=== PATIENT | female | born 1975 | race Caucasian/White ===

== ENCOUNTER 2023-11-21 08:21 | Emergency (ER) | payer BC, SELFPAY ==
[2023-11-21 08:23] VITALS: BP 177/96
[2023-11-21 08:40] VITALS: BP 121/63
[2023-11-21 08:41] VITALS: BMI 48.1
--- NOTE | 2023-11-21 08:49 | ED.GENMED ---
History of Present Illness
General
Chief Complaint: Heart Rate Problem
Time Seen by Provider: 11/21/23 08:30
Travel History
Have you had any contact with someone who has COVID-19?: No
Do you have any symptoms of coronavirus? Fever > 100 degrees, chills, cough, shortness of breath, sore throat, loss of taste or smell, muscle aches, or headache?: No
History of Present Illness
History of Present Illness:
48-year-old female with a history of A-fib presents to the emergency department for evaluation of heart palpitations beginning this morning lasting approximately 1 hour. She notes associated chest tightness and dizziness during the episode. Upon
arrival to the emergency department the symptoms resolved. He does have a long history of heart palpitations that have gone undiagnosed however 1 bout of A-fib that required electrical cardioversion at outside hospital. She has previously seen a
senior svp and wore a Holter monitor that did not show any evidence for cardiac arrhythmia
Past History
Past History
ED Past Medical History: GERD, Psychiatric (Bipolar disorder, anxiety) and Other (Migraine headaches, history of pancreatitis)
ED Past Surgical History: None
Social History
Tobacco: Non-smoker
Alcohol: Occasional
Drug: None
Personal:
Living: with family
Employment: Employed ([employer])
Review of Systems
Review of Systems
Allergies reviewed?: Yes
All Other Systems: ROS reviewed and negative except as documented in HPI and ROS
Phy Exam
Physical Exam
Physical Exam:
GEN: Well appearing, NAD, WDWN
Eyes: PERRLA, EOMs intact, no scleral icterus
HENT: NCAT, oral mucosa moist
Lungs: CTAB, no wheezes, rales, rhonchi, normal chest wall excursion
Cardiac: RRR, no M/R/G, no peripheral edema. Radial pulses 2+ bilat
Neuro: AO x 3
MSK: No gross deformity or ecchymosis. No edema. No digital clubbing
Skin: No rashes, petechiae. Normal color, no pallor or jaundice.
Psych: Calm, cooperative, proper hygiene
Course
Orders/Labs/Results
Orders:
Orders
11/21/23 08:28
Electrocardiogram (*1) Urgent
Reason for Study: Tachycardia
11/21/23 08:29
EKG- Treatment ONCE
11/21/23 08:54
Complete Blood Count/With Diff Urgent
Comprehensive Metabolic Panel Urgent
TSH Urgent
Abnormal Lab Results
11/21/23
08:54
Hgb 10.2 L g/dL
(12.0-16.0)
Hct 32.9 L %
(37.0-47.0)
MCV 73.9 L fL
(81.0-99.0)
MCH 22.9 L pg
(27.0-31.0)
MCHC 31.0 L g/dL
(33.0-37.0)
RDW 16.6 H %
(11.5-14.5)
Plt Count 407 H 10^3/uL
(130-400)
MPV 10.8 H fL
(7.4-10.4)
Abs Immat Gran (auto) 0.1 H 10^3/uL
(0-0.05)
Immature Gran % 1.1 H %
(0-0.5)
Lymphocytes % 17.3 L %
(20.5-51.1)
Glucose 183 H mg/dl
(70-99)
Total Bilirubin 1.4 H mg/dl
(0.2-1.3)
11/21/23 08:54
11/21/23 08:54
Vital Signs
Initial and Last Documented VS:
Initial Vital Signs
Temp Pulse Resp BP Pulse Ox
97.8 F 100 18 177/96 100
11/21/23 08:23 11/21/23 08:23 11/21/23 08:23 11/21/23 08:23 11/21/23 08:23
Last Documented Vital Signs
Temp Pulse Resp BP Pulse Ox
97.8 F 88 24 132/69 95
11/21/23 08:23 11/21/23 09:30 11/21/23 09:30 11/21/23 09:00 11/21/23 09:30
MDM/Problems Addressed
MDM/Problems Addressed:
Patient remained in normal sinus rhythm in the emergency department with normal labs. Given her prior history of A-fib and her frequent near monthly episodes of palpitations I discussed starting her on low-dose beta-roman preventatively, she is
amenable to this. Will follow-up with her primary care doctor and primary senior svp
Comment
Comment:
EKG independently interpreted by me shows normal sinus rhythm at a rate of [address], QTc of 457
*Critical Care Note
Total Time (30-74mins, 75-104mins- exclusive of procedures): Not Applicable
ED Attending Note
-
Portions of this chart may have been created with voice recognition software.� Occasional wrong word or��sound alike� substitutions may have occurred due to the inherent limitations of voice recognition software.
Discharge Plan
Departure
Patient Disposition: Home (Routine Discharge)
Date of Disposition: 11/21/23
Time of Disposition: 09:25
Patient with high blood pressure during this ER visit?: No
Discharge Problem:
Heart palpitations
Instructions: Palpitations (DC)
Prescriptions:
New
metoprolol succinate 25 mg tablet extended release 24 hr
12.5 mg PO DAILY Qty: 30 0RF
No Action
ferrous sulfate 325 mg (65 mg iron) tablet
325 mg PO DAILY Qty: 30 0RF
Referrals:
UNKNOWN - PT DOES,NOT KNOW [Family Provider] -
Activity Restrictions/Additional Instructions:
Follow up with your primary doctor and senior svp for further symptoms
Interventions
Interventions:
*Risk Screen - Suicide Last Done: 11/21/23 08:41
*General Assessment Last Done: 11/21/23 08:41
*Neglect/Abuse Screening Last Done: 11/21/23 08:41
ED- Fall Risk Assessment Last Done: 11/21/23 08:41
*ED COVID-19 Vaccine History Last Done: 11/21/23 08:23
*Nursing Disposition Last Done: 11/21/23 09:36
ED- Cardiac Assessment Last Done: 11/21/23 08:41
ED- Pulmonary Assessment Last Done: 11/21/23 08:41
Discharge Date and Time
Discharge Date/Time: 11/21/23 09:37
Print Language: KYRGYZ
[2023-11-21 09:00] VITALS: BP 132/69
[2023-11-21 09:03] LABS: % Basophils 0.8 % (0-2); % Eosinophils 1.7 % (0-6); % Immature Granulocytes 1.1 % (0-0.5); % Lymphocytes 17.3 % (20.5-51.1); % Monocytes 5.4 % (1.7-9.3); % Neutrophils 73.7 % (42.2-75.2); Absolute Basophils 0.1 10^3/uL (0-0.2); Absolute Eosinophils 0.1 10^3/uL (0-0.7); Absolute Immature Granulocytes 0.1 10^3/uL (0-0.05); Absolute Lymphocytes 1.4 10^3/uL (1.2-3.4); Absolute Monocytes 0.5 10^3/uL (0.1-0.6); Absolute Neutrophils 6.1 10^3/uL (1.4-6.5); Hematocrit 32.9 % (37.0-47.0); Hemoglobin 10.2 g/dL (12.0-16.0); Mean Corpuscular Hgb 22.9 pg (27.0-31.0); Mean Corpuscular Volume 73.9 fL (81.0-99.0); Mean Platelet Volume 10.8 fL (7.4-10.4); Nucleated Red Blood Cells % 0 %; Platelet Count 407 10^3/uL (130-400); Red Blood Cell Count 4.45 10^6/uL (4.20-5.40); Red Cell Dist. Width 16.6 % (11.5-14.5); White Blood Cell Count 8.3 10^3/uL (4.8-10.8)
[2023-11-21 09:11] LABS: ALT (SGPT) 18 U/L (0-35); AST (SGOT) 24 U/L (14-36); Albumin 4.3 g/dl (3.5-5.0); Alkaline Phosphatase 100 U/L (38-126); Blood Urea Nitrogen 10 mg/dl (7-17); Carbon Dioxide 24 mmol/L (22-30); Chloride 105 mmol/L (98-107); Estimated Creatinine Clearance > 125 ml/min; Glucose 183 mg/dl (70-99); Potassium 4.1 mmol/L (3.5-5.1); Sodium 138 mmol/L (135-145); Total Bilirubin 1.4 mg/dl (0.2-1.3); Total Protein 7.9 g/dl (6.3-8.2); eGFR > 60.00
[2023-11-21 10:15] LABS: TSH 1.35 uIU/ml (0.47-4.68)
== END 2023-11-21 09:37 | disposition home or self-care (01) ==
LOC: EMR 08:21
PROVIDERS: Physician Assistant; EMERGENCY PHYSICIAN Emergency Medicine
DX: R00.2 Palpitations (principal); I48.91 Unspecified atrial fibrillation
CPT/HCPCS: 99284; 80053; 84443; 85025; 93005

== ENCOUNTER 2024-09-02 07:47 | Inpatient (IN) | payer BC, SELFPAY ==
[2024-08-31 15:52] VITALS: BP 161/80
--- NOTE | 2024-08-31 15:55 | ED.GENMED ---
ED Provider Triage
<Ollie Maxwell PA-C - Last Filed: 08/31/24 15:58>
-
Patient seen by provider in Triage?: Seen in Triage
Attestation: A medical screening examination has been initiated by a qualified medical provider. Based on the assessment performed at this time, it has been determined that an emergent medical condition may exist and the patient has been informed
that further medical evaluation and possible additional diagnostic testing may be needed.
HPI: 49-year-old female presenting to the emergency department for evaluation at the request of her urgent care after she developed a rash on her right lower extremity over the last couple of days, intensely pruritic, erythematous with edema and
pain. Urgent care felt patient may have scabies and the possibility secondarily cellulitis. Reports borderline diabetes recently diagnosed with labs earlier this month. No fevers or chills. labs and ultrasound imaging to rule out DVT ordered.
GENERAL: Alert , in no apparent distress
EYE: No visual abnormalities.
NECK: Trachea midline
ENT: No visible abnormalities.
LUNGS: No acute respiratory distress
NEUROLOGICAL: Alert and oriented
SKIN: Skin intact. No visible changes.
MUSCULOSKELETAL: Moving extremities normally
PSYCH: Normal and appropriate interaction.
This is a medical evaluation conducted in person to initiate diagnostic evaluation and provide initial therapeutics. Please see further documentation by the treating clinician.
History of Present Illness
<Ollie Maxwell PA-C - Last Filed: 08/31/24 15:58>
General
Chief Complaint: Skin Problem
Time Seen by Provider: 08/31/24 20:07
<Cari Sterling MD - Last Filed: 08/31/24 20:26>
History of Present Illness
History of Present Illness:
Patient is a 49-year-old woman with history of newly diagnosed diabetes not currently on medications, A-fib not on anticoagulation presenting to the emergency department with a skin infection. Patient states that about a month ago she developed
worsening of her eczema. She developed a rash to her right lower extremity as she started itching. She then developed some redness throughout the entire leg. A few weeks ago she started itching her left lower leg as well as the eczema is flaring
up. She states that she was itching it and then noticed open wounds. She states that since then the left lower extremity has also been red and hot. Occasionally both the legs will start draining from the wounds yellow almost purulent drainage.
No fevers. She has been having some chills. She also notes that she has been scratching her upper extremities as well. She thought it was eczema at first. She went to the urgent care who were concerned about significant cellulitis and
recommended her to come to the emergency department for IV antibiotic as well as ultrasound to rule out DVT.
Past History
<Ollie Maxwell PA-C - Last Filed: 08/31/24 15:58>
Past History
ED Past Medical History: GERD, Psychiatric (Bipolar disorder, anxiety) and Other (Migraine headaches, history of pancreatitis)
ED Past Surgical History: None
Social History
Tobacco: Non-smoker
Alcohol: Occasional
Drug: None
Personal:
Living: with family
Employment: Employed ([employer])
Phy Exam
<Cari Sterling MD - Last Filed: 08/31/24 20:26>
Physical Exam
Physical Exam:
GENERAL: in no acute distress
HEENT: normocephalic, extraocular movements intact, moist oral mucosa
NECK: normal inspection
RESPIRATORY: no respiratory distress, clear to auscultation bilaterally
CARDIOVASCULAR: regular rate and rhythm
ABDOMEN/: soft, non-distended, non-tender to palpation, no rebound or guarding
EXTREMITIES: Bilateral lower extremity with scabbed over wounds with some mild drainage, circumferential erythema edema and warmth. Swelling is slightly worse on the right compared to the left. No obvious fluctuance or areas of an abscess
NEUROLOGIC: awake and alert, moves all extremities
SKIN: warm, dry skin with occasional scabs to the outer upper extremities
Course
<Ollie Maxwell PA-C - Last Filed: 08/31/24 15:58>
Orders/Labs/Results
Orders:
Orders
08/31/24 15:56
US Periph Venous LOWER Ext RT Urgent
Comment:
Reason For Exam: edema, pain, erythema
08/31/24 16:22
Basic Metabolic Panel Urgent
Complete Blood Count/With Diff Urgent
08/31/24 20:16
CefTRIAXone [Rocephin] 2,000 mg IV NOW STA
08/31/24 20:17
Vancomycin [Vancocin] 2,000 mg 0.9% Sodium Chloride 500 ml [Nss] 500 ml IV NOW
Abnormal Lab Results
08/31/24
16:22
WBC 14.7 H 10^3/uL
(4.8-10.8)
Hgb 9.5 L g/dL
(12.0-16.0)
Hct 31.9 L %
(37.0-47.0)
MCV 74.2 L fL
(81.0-99.0)
MCH 22.1 L pg
(27.0-31.0)
MCHC 29.8 L g/dL
(33.0-37.0)
RDW 17.0 H %
(11.5-14.5)
Abs Immat Gran (auto) 0.1 H 10^3/uL
(0-0.05)
Absolute Neuts (auto) 11.4 H 10^3/uL
(1.4-6.5)
Absolute Monos (auto) 0.9 H 10^3/uL
(0.1-0.6)
Neutrophils % 78.0 H %
(42.2-75.2)
Lymphocytes % 13.1 L %
(20.5-51.1)
Sodium 131 L mmol/L
(135-145)
Glucose 100 H mg/dl
(70-99)
08/31/24 16:22
08/31/24 16:22
Vital Signs
Initial and Last Documented VS:
Initial Vital Signs
Temp Pulse Resp BP Pulse Ox
97.9 F 84 20 161/80 98
08/31/24 15:52 08/31/24 15:52 08/31/24 15:52 08/31/24 15:52 08/31/24 15:52
Last Documented Vital Signs
Temp Pulse Resp BP Pulse Ox
97.9 F 73 20 151/89 100
08/31/24 15:52 08/31/24 18:00 08/31/24 18:00 08/31/24 18:00 08/31/24 18:00
<Cari Sterling MD - Last Filed: 08/31/24 20:26>
Orders/Labs/Results
Orders:
Orders
08/31/24 15:56
US Periph Venous LOWER Ext RT Urgent
Comment:
Reason For Exam: edema, pain, erythema
08/31/24 16:22
Basic Metabolic Panel Urgent
Complete Blood Count/With Diff Urgent
08/31/24 20:16
CefTRIAXone [Rocephin] 2,000 mg IV NOW STA
08/31/24 20:17
Vancomycin [Vancocin] 2,000 mg 0.9% Sodium Chloride 500 ml [Nss] 500 ml IV NOW
Abnormal Lab Results
08/31/24
16:22
WBC 14.7 H 10^3/uL
(4.8-10.8)
Hgb 9.5 L g/dL
(12.0-16.0)
Hct 31.9 L %
(37.0-47.0)
MCV 74.2 L fL
(81.0-99.0)
MCH 22.1 L pg
(27.0-31.0)
MCHC 29.8 L g/dL
(33.0-37.0)
RDW 17.0 H %
(11.5-14.5)
Abs Immat Gran (auto) 0.1 H 10^3/uL
(0-0.05)
Absolute Neuts (auto) 11.4 H 10^3/uL
(1.4-6.5)
Absolute Monos (auto) 0.9 H 10^3/uL
(0.1-0.6)
Neutrophils % 78.0 H %
(42.2-75.2)
Lymphocytes % 13.1 L %
(20.5-51.1)
Sodium 131 L mmol/L
(135-145)
Glucose 100 H mg/dl
(70-99)
08/31/24 16:22
08/31/24 16:22
Vital Signs
Initial and Last Documented VS:
Initial Vital Signs
Temp Pulse Resp BP Pulse Ox
97.9 F 84 20 161/80 98
08/31/24 15:52 08/31/24 15:52 08/31/24 15:52 08/31/24 15:52 08/31/24 15:52
Last Documented Vital Signs
Temp Pulse Resp BP Pulse Ox
97.9 F 73 20 151/89 100
08/31/24 15:52 08/31/24 18:00 08/31/24 18:00 08/31/24 18:00 08/31/24 18:00
<Cari Sterling MD - Last Filed: 08/31/24 20:26>
MDM/Problems Addressed
Differential Diagnosis Includes:
Patient is a 49-year-old woman with history of newly diagnosed diabetes not currently on medication, eczema, A-fib presenting to the emergency department with a skin infection. Vitals are notable for being afebrile. On exam she does have bilateral
lower extremity erythema edema with wound to have a scabbed over. Concern for skin infection. It is unusual that it is the bilateral lower extremities however it did start on the right then progressed to the left. Considered DVT given patient
does have history of A-fib. History and exam not consistent with necrotizing skin infection. Blood work obtained prior to evaluation does show significant leukocytosis. She also has hemoglobin of 9.5 which is similar to prior. Will initiate
antibiotics. Discussed with hospitalist who excepted patient to their service with ultrasound pending at the time of admission.
<Cari Sterling MD - Last Filed: 08/31/24 20:26>
*Critical Care Note
Total Time (30-74mins, 75-104mins- exclusive of procedures): Not Applicable
ED Attending Note
<Ollie Maxwell PA-C - Last Filed: 08/31/24 15:58>
-
Portions of this chart may have been created with voice recognition software.� Occasional wrong word or��sound alike� substitutions may have occurred due to the inherent limitations of voice recognition software.
Discharge Plan
Departure
Patient Disposition: Admit
Date of Disposition: 08/31/24
Time of Disposition: 20:26
Presentation/result/management discussed w/ accepting MD/DO: Hospitalist
Discharge Problem:
Cellulitis
Prescriptions:
No Action
ferrous sulfate 325 mg (65 mg iron) tablet
325 mg PO DAILY Qty: 30 0RF
metoprolol succinate 25 mg tablet extended release 24 hr
12.5 mg PO DAILY Qty: 30 0RF
Referrals:
NONE,* [Family Provider] -
Interventions
Interventions:
*Risk Screen - Suicide Last Done: 08/31/24 15:52
*General Assessment Last Done: 08/31/24 15:52
*Neglect/Abuse Screening Last Done: 08/31/24 15:52
*ED COVID-19 Vaccine History Last Done: 08/31/24 18:52
Discharge Date and Time
Print Language: ZAMBIAN
[2024-08-31 16:30] LABS: % Basophils 0.5 % (0-2); % Eosinophils 1.6 % (0-6); % Immature Granulocytes 0.5 % (0-0.5); % Lymphocytes 13.1 % (20.5-51.1); % Monocytes 6.3 % (1.7-9.3); Absolute Basophils 0.1 10^3/uL (0-0.2); Absolute Eosinophils 0.2 10^3/uL (0-0.7); Absolute Immature Granulocytes 0.1 10^3/uL (0-0.05); Absolute Lymphocytes 1.9 10^3/uL (1.2-3.4); Absolute Monocytes 0.9 10^3/uL (0.1-0.6); Absolute Neutrophils 11.4 10^3/uL (1.4-6.5); Hematocrit 31.9 % (37.0-47.0); Hemoglobin 9.5 g/dL (12.0-16.0); Mean Corp Hgb Conc. 29.8 g/dL (33.0-37.0); Mean Corpuscular Hgb 22.1 pg (27.0-31.0); Mean Corpuscular Volume 74.2 fL (81.0-99.0); Mean Platelet Volume 10.1 fL (7.4-10.4); Nucleated Red Blood Cells % 0 %; Platelet Count 386 10^3/uL (130-400); White Blood Cell Count 14.7 10^3/uL (4.8-10.8)
[2024-08-31 16:52] LABS: Blood Urea Nitrogen 10 mg/dl (7-17); Calcium 9.2 mg/dl (8.4-10.2); Carbon Dioxide 23 mmol/L (22-30); Chloride 99 mmol/L (98-107); Glucose 100 mg/dl (70-99); Potassium 3.9 mmol/L (3.5-5.1); Sodium 131 mmol/L (135-145); eGFR > 60.00
[2024-08-31 18:00] VITALS: BP 151/89
[2024-08-31] MEDS: ROCEPHIN 2000 MG IV (20:51)
[2024-08-31] MEDS: VANCOCIN 540 MG IV (21:00)
--- NOTE | 2024-08-31 21:29 | HPS.HSE ---
Family Physician
-
Family Physician: * NONE
Chief Complaint
-
Right lower extremity erythema and swelling
History of Present Illness
49-year-old female with past medical history of proximal atrial fibrillation, migraine headaches, morbid obesity, recent diagnosis of diabetes on metformin daily who presents to the emergency department with pain and swelling in the right lower
extremity.
Patient reported about 2 weeks of generalized itching with skin break in the upper and lower extremities. She has punctate lesions throughout. She denies taking any new medications when this symptoms began. She has no water or environmental
changes that would explain the pruritus. Patient was seen in our weight loss clinic and diagnosed with new onset diabetes started on metformin but that was only 2 days ago.
She denies fevers or chills. She reported that with the itching she scraped her skin in right lower extremity and developed CVA tenderness spreading erythema and more swelling relative to the left. She was seen in urgent care and sent to the
emergency department for evaluation.
Medical History
Past Medical History
Past Medical History: Reports Arrhythmia (Proximal atrial fibrillation) and NIDDM
Past Surgical History: Reports None
Social History
Tobacco: Non-smoker
Alcohol: None
Drug: None
Personal:
Living: With Family
Employment: Employed
Family History
Family History: Adopted
Allergies / Home Medications
Allergies reflects when Allergies were last updated in [email or web address].
Home Medications with original date entered in [email or web address]
Allergy/Medication List:
Allergies
Allergy/AdvReac Type Severity Reaction Status Date / Time
No Known Allergies Allergy Verified 08/31/24 15:57
Home Medications
flecainide 50 mg tablet 50 mg PO [id number] PRN blood pressure 08/31/24
metformin 500 mg tablet,extended release 24 hr 500 mg PO DAILY 08/31/24
nadolol 20 mg tablet 20 mg PO BID 08/31/24
Review of Systems
-
Constitutional: Reports No Symptoms
EENT: Reports No Symptoms
Respiratory: Reports No Symptoms
Cardiac: Reports No Symptoms
Abdomen/GI: Reports No Symptoms
: Reports No Symptoms
Musculoskeletal: Reports No Symptoms
Skin: Reports Itching and Rash
Neurological: Reports No Symptoms
Endocrine: Reports No Symptoms
Hematologic/Lymphatic: Reports No Symptoms
Psych: Reports No Symptoms
Physical Exam
Vital Signs
Vital Signs
Temp Pulse Resp BP Pulse Ox
97.9 F 73 20 151/89 100
08/31/24 15:52 08/31/24 18:00 08/31/24 18:00 08/31/24 18:00 08/31/24 18:00
Physical Exam
General: Well Developed, Well Nourished and Comfortable
HEENT: NormoCephalic, Anicteric, Moist mucous membranes, Atraumatic and PERRLA
Respiratory: Clear
Cardiac: S1/S2 and Regular Rhythm
Breast: Deferred by me
GI: Soft, Non Tender, Non Distended and Normal Bowel Sounds
Rectal: Deferred by Provider
Genito-urinary: Deferred by me
Musculoskeletal: No Clubbing, No Cyanosis and No Edema
Skin: Warm, Dry and Rash (Punctate skin breaks throughout the upper and lower extremities. More confluent erythema edema and tenderness in the right lower extremity)
Neuro: AO x 3 and Nonfocal/grossly intact
Hematologic/Lymphatic: No Lymphadenopathy
Psych: Calm
Laboratory Results
-
08/31/24 16:22
08/31/24 16:22
Impression/Plan
-
IMPRESSION:
49-year-old with likely right lower extremity cellulitis in the setting of itching and trauma to the skin from scratching. She is a new onset diabetes, denies any recent antibiotic use, denies any recent hospitalizations. Recently started on
metformin, no history of insulin-dependent.
Labs notable for leukocytosis to 14,000, microcytic anemia with hemoglobin of 9.5, sodium was 131 rest of the labs are unremarkable. She hemodynamically stable and afebrile here. She lower extremity ultrasound which was negative for DVT, no fluid
collection or abscess noted.
PLAN:
Cellulitis - clearly secondary to scratching from pruritus, swelling, tender to palp exquisitely.
- admit to med/surg
- IV vanc/ceftriaxone given in ED, will continue with IV vancomycin for now
- keep leg elevated, pain control
- check mrsa, monitor fever profile
- atarax for pruritus
- ID cosultation
DM II
- continue metformin with insulin sliding scale
AFIB
- continue flecainide (this is prn afib) and nadolol 20 bid
DVT PPX - lovenox sq
Code status - Full Code
[2024-08-31 22:43] VITALS: BP 147/64
[2024-08-31] MEDS: DECADRON 10 MG IV (22:44)
[2024-08-31] MEDS: PEPCID 20 MG IV (22:44)
[2024-08-31] MEDS: BENADRYL 25 MG IV (22:44)
[2024-08-31 23:00] VITALS: BP 119/64
--- NOTE | 2024-08-31 23:00 | W.PN.UPDATE ---
Update Note
Progress Note Update
Patient started having heart burn and some chest tightness. She developed facial flushing. She became very anxious and was clenching and felt there was tightness in her throat. This began on infusion of vancomycin. She received 75% of the
vancomycin dose. Concern for acute allergic reaction vs ros with anxiety. Was given Pepcid Benadryl and Decadron. Currently with mild facial erythema, no stridor or wheezing. HD stable. DC'd vancomycin
Continuing with cefazolin for now.
--- NOTE | 2024-08-31 23:40 | PTCARENOTE ---
Patient arrived on unit from ED via stretcher. Patient ambulated to room. Patient oriented to unit. Call light within reach. Care ongoing.
[2024-08-31 23:46] VITALS: BP 160/75; BMI 54.4
[2024-08-31 23:50] VITALS: BMI 54.4
[2024-09-01 00:09] VITALS: BP 139/73
[2024-09-01] MEDS: ATARAX 25 MG PO ×2 (00:13→17:34)
[2024-09-01] MEDS: NSS 500 IV (00:35)
[2024-09-01] MEDS: ANCEF IV (03:14)
--- NOTE | 2024-09-01 03:15 | DOWNTIME ---
There was a [employer] Client Granulator Operator Downtime on 09/01/2024 from 0100 to 09/01/2023 at 0235 . Downtime documentation of patient's care, including medication administrations, has been reconciled in the electronic record per guidelines. Refer to the
patient's paper chart under the miscellaneous tab to see printed paper medication records and downtime forms.
[2024-09-01 06:26] LABS: Hematocrit 28.6 % (37.0-47.0); Hemoglobin 8.8 g/dL (12.0-16.0); Mean Corp Hgb Conc. 30.8 g/dL (33.0-37.0); Mean Corpuscular Hgb 22.5 pg (27.0-31.0); Mean Corpuscular Volume 73.1 fL (81.0-99.0); Mean Platelet Volume 10.6 fL (7.4-10.4); Platelet Count 351 10^3/uL (130-400); Red Blood Cell Count 3.91 10^6/uL (4.20-5.40); Red Cell Dist. Width 16.9 % (11.5-14.5); White Blood Cell Count 10.7 10^3/uL (4.8-10.8)
[2024-09-01 07:03] LABS: Blood Urea Nitrogen 8 mg/dl (7-17); Carbon Dioxide 21 mmol/L (22-30); Chloride 105 mmol/L (98-107); Creatine Phosphokinase 46 U/L (30-135); Estimated Creatinine Clearance > 125 ml/min; Glucose 202 mg/dl (70-99); Potassium 4.2 mmol/L (3.5-5.1); Sodium 135 mmol/L (135-145); eGFR > 60.00
[2024-09-01 07:14] VITALS: BP 123/56
[2024-09-01 07:27] LABS: Glucose - Point of Care 194 mg/dl (70-99)
[2024-09-01] MEDS: CORGARD 20 MG PO ×2 (08:41→21:04)
[2024-09-01] MEDS: GLUCOPHAGE XR EXTENDED RELEASE 500 MG PO (08:41)
[2024-09-01] MEDS: NOVOLOG FLEXPEN-LOW RESISTANCE 1 UNITS SC ×2 (10:03→17:37)
[2024-09-01] MEDS: ANCEF 10 IV ×2 (10:05→17:34)
[2024-09-01 11:29] LABS: Glucose - Point of Care 218 mg/dl (70-99)
--- NOTE | 2024-09-01 11:35 | W.PN.HOSP.TC ---
Today's Communication/Plan
-
see outlined plan
Assessment / Plan
Assessment / Plan
Assessment:
RLE Cellulitis (exacerbated by diabetes state)
Generalized eczema, chronic
- did not tolerate Vancomycin (flush, chest tightness, throat tightness)
- continue IV Ancef. check MRSA swab.
- pain control
- elevated LE
- pruritus control with Atarax
- ID consulted
type 2 DM
- newly diagnosed x 1 week ago
- continue Metformin
- continue SSI
- Diabetes education consult - patient is not versed on diabetes care, monitor etc
Parox A. Fib
- continue Nadolol and prn Flecainide
- [id number] score 2 (age, female) - not on AC snf but newly diagnosed DM. Will start Alyse, d/w patient.
Hyponatremia
- resolved
DVT ppx: Lovenox
Code: Full
Anticipated Discharge: 24 - 48 hours
Subjective/Interval History
-
Date of Service: September 01, 2024
reports RLE pain at scab site calf
no fever/chills
tolerating Ancef
Objective Data
-
Labs:
Laboratory Results
09/01/24
05:58
WBC 10.7
Hgb 8.8 L
Hct 28.6 L
Plt Count 351
Sodium 135
Potassium 4.2
Chloride 105
Carbon Dioxide 21 L
BUN 8
Creatinine 0.6
Glucose 202 H
Calcium 9.0
Vital Signs:
Vital Signs
Temp Pulse Resp BP Pulse Ox
98.6 F 74 17 123/56 98
09/01/24 07:14 09/01/24 07:14 09/01/24 07:14 09/01/24 07:14 09/01/24 07:14
I&O
08/31/24 09/01/24 09/02/24
06:59 06:59 06:59
Intake Total 240 / 240
Balance 240 / 240
Physical Exam
-
General: Morbidly Obese
HEENT: Normocephalic and Atraumatic
Respiratory: Negative Wheezes
Cardiac: Regular Rhythm and S1/S2
GI: Soft and Nontender
Genito-urinary: No Costovertebral Tender
Skin: Other (RLE cellulitis surrounding areas of scratching, scabbed lesions from itching)
Neuro: AO x 3
Hematologic / Lymphatic: No Lymphadenopathy
Psych: Calm
Data Reviewed
-
Total Time Spent with Patient (in minutes): 42
Labs: Labs Reviewed by me
[2024-09-01] MEDS: NOVOLOG FLEXPEN-LOW RESISTANCE 2 UNITS SC (12:20)
[2024-09-01] MEDS: TYLENOL 650 MG PO ×2 (12:20→17:36)
--- NOTE | 2024-09-01 12:47 | CM ---
Spoke with attending who stated that patient needs coupon for Eliquis. Met with patient to obtain information for assessment. Patient stated that she lives with her spouse in a two story home with 7 steps to enter. She described herself as
independent with her ADLs, personal care, dressing and bathing. 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 Patient drives and can get herself to her appointments and do all of her own shopping. She works full stack php developer.
Patient has never had VN services.
She has no DME.
Patient has never been to a SNF.
She has a prescription plan and uses, [facility] [address] for all of her medications.
Patient's PCP is, not listed.
Patient was provided with OBS letter, it was reviewed and she signed it. It is now on chart. Provided coupons for Eliquis and explained how to utilize. Patient had no further questions and expressed appreciation.
Plan: Case management will continue to follow and assist with discharge planning. Home when stable.
--- NOTE | 2024-09-01 13:18 | CON.ID ---
Consultation
-
Date/Time Consultation Requested: 08/31/2024 6634
Date/Time Consultation Performed: 09/01/2024 1236
Requesting Provider: Dr. Wade
Performing Provider: Dr. Carver
Reason for Consultation: Cellulitis
Chief Complaint / Past History
History of Present Illness
Kajal Adam is a 49-year-old female with a significant past medical history of eczema since childhood, A-fib and recent diagnosis of diabetes being evaluated regarding lower extremity cellulitis. History is obtained from chart review, along
with patient interview.
The patient reports that approximately mid June she began to have a small patch of eczema develop on her lateral right leg which she noted to scratch. Over time, the scratching intensified, and she developed some pustules on the leg. She
subsequently developed some areas of pruritus on her arms, and then finally there has developed some lesions on her left lower extremity. Yesterday she was seen at urgent care, and was sent to the emergency room for further evaluation. She was
found to have initial leukocytosis. She was started on empiric antibiotics (cefazolin) and admitted to the general medical floor. At this time she notes that her pain has decreased from an 8-6. She continues to have right lower extremity
tenderness. She denies any fevers or chills prior to admission, and here she has remained afebrile. She notes no prior history of similar episodes in the past. She lives with her and denies any lesions on him.
Past History
Additional Past Medical History:
DM
A-fib
Eczema
Obesity (BMI = 54)
Past Surgical History: None
Allergy History:
vancomycin Adverse Reaction (Intermediate, Verified 08/31/24 22:54)
Itching
Medications Reviewed: Yes
Current Antibiotics:
Cefazolin 2 g IV every 8 hours
Social History
Tobacco: Non-Smoker
Alcohol: None
Drug: None
Personal:
Living: With Family
Employment: Employed ([employer])
Family History
Family History: Not Pertinent
Review of Systems
Vital Signs
Temp Pulse Resp BP Pulse Ox
98.6 F 74 17 123/56 98
09/01/24 07:14 09/01/24 07:14 09/01/24 07:14 09/01/24 07:14 09/01/24 12:34
Physical Exam
Physical Exam
Constitutional: No Acute Distress, Comfortable, Non-toxic and Obese
Head: Normocephalic
Eyes: Pupils Equal, Pupils Round, No Conjunctival Hemorrhage and Sclera Anicteric
Oral: No Thrush and No Ulcers
Cardiovascular: Regular Rate and S1/S2; Negative S3/S4
Pulmonary: Clear; Negative Wheezes or Rales
Gastrointestinal: Soft, Non Tender and Non Distended
Extremities: Edema (Bilateral extremities) and Erythema (Bilateral extremities; R>L)
Skin: Rash (Multiple small crusts noted bilateral lower extremities (some with serous drainage). Crusts also noted on bilateral lower extremities, but to a lesser degree.)
Neurological: Awake and Alert
Psychological: Calm
Lab / Diagnostic Study Results
09/01/24 05:58
09/01/24 05:58
Abs Immat Gran (auto) 0.1 10^3/uL (0-0.05) H 08/31/24 16:22
Absolute Neuts (auto) 11.4 10^3/uL (1.4-6.5) H 08/31/24 16:22
Absolute Lymphs (auto) 1.9 10^3/uL (1.2-3.4) 08/31/24 16:22
Absolute Monos (auto) 0.9 10^3/uL (0.1-0.6) H 08/31/24 16:22
Absolute Basos (auto) 0.1 10^3/uL (0-0.2) 08/31/24 16:22
Immature Gran % 0.5 % (0-0.5) 08/31/24 16:22
Neutrophils % 78.0 % (42.2-75.2) H 08/31/24 16:22
Lymphocytes % 13.1 % (20.5-51.1) L 08/31/24 16:22
Monocytes % 6.3 % (1.7-9.3) 08/31/24 16:22
Eosinophils % 1.6 % (0-6) 08/31/24 16:22
Basophils % 0.5 % (0-2) 08/31/24 16:22
Microbiology Results
Micro:
09/01/24 08:13 MRSA Screen - Pending
Nose
Assessment / Plan
Right lower extremity cellulitis
Multiple crusts on the extremities (?Secondary to itching/digital trauma)
Lower extremity lymphedema
Leukocytosis; improved
Anemia
DM
A-fib
Eczema
Obesity (BMI = 54)
Recommendations:
Agree with initiation of cefazolin for presumed right lower extremity cellulitis.
If continued improvement over next 24-48h, can be transition to oral cephalexin at the time of discharge.
-Given obesity, will likely require higher dosing. (1 gm PO QID)
Patient may benefit from lower extremity Gerardo wrap's given LE edema; will order
Following discharge, patient has been counseled make an appointment in the clinic
[2024-09-01 15:11] VITALS: BP 133/67
[2024-09-01 16:45] LABS: Glucose - Point of Care 166 mg/dl (70-99)
[2024-09-01] MEDS: ELIQUIS 5 MG PO (21:03)
[2024-09-01] MEDS: FLUSH (NSS) 1 FLUSH IV (21:09)
[2024-09-01 21:13] VITALS: BP 130/64
[2024-09-01 21:22] LABS: Glucose - Point of Care 149 mg/dl (70-99)
[2024-09-01 23:00] VITALS: BP 119/55
[2024-09-02] MEDS: FLUSH (NSS) 2 FLUSH IV (02:24)
[2024-09-02] MEDS: ANCEF 10 IV ×3 (02:24→17:42)
[2024-09-02 06:22] LABS: Hematocrit 28.4 % (37.0-47.0); Hemoglobin 8.4 g/dL (12.0-16.0); Mean Corp Hgb Conc. 29.6 g/dL (33.0-37.0); Mean Corpuscular Hgb 22.3 pg (27.0-31.0); Mean Corpuscular Volume 75.3 fL (81.0-99.0); Mean Platelet Volume 10.8 fL (7.4-10.4); Platelet Count 314 10^3/uL (130-400); Red Blood Cell Count 3.77 10^6/uL (4.20-5.40); Red Cell Dist. Width 17.2 % (11.5-14.5); White Blood Cell Count 12.7 10^3/uL (4.8-10.8)
[2024-09-02 06:43] LABS: Blood Urea Nitrogen 13 mg/dl (7-17); Calcium 8.8 mg/dl (8.4-10.2); Carbon Dioxide 24 mmol/L (22-30); Chloride 104 mmol/L (98-107); Estimated Creatinine Clearance > 125 ml/min; Glucose 114 mg/dl (70-99); Potassium 4.2 mmol/L (3.5-5.1); Sodium 136 mmol/L (135-145); eGFR > 60.00
[2024-09-02 07:39] VITALS: BP 128/63
[2024-09-02 07:47] LABS: Glucose - Point of Care 114 mg/dl (70-99)
[2024-09-02] MEDS: NOVOLOG FLEXPEN-LOW RESISTANCE SC ×3 (08:18→17:15)
[2024-09-02] MEDS: CORGARD 20 MG PO ×2 (08:18→21:20)
[2024-09-02] MEDS: ELIQUIS 5 MG PO ×2 (08:18→21:20)
[2024-09-02] MEDS: GLUCOPHAGE XR EXTENDED RELEASE 500 MG PO (08:18)
--- NOTE | 2024-09-02 10:19 | W.PN.HOSP.TC ---
Today's Communication/Plan
-
Monitor vital signs
see plan
Continue with IV antibiotics
Check iron panel, B12, folate
Monitor hemoglobin
Assessment / Plan
Assessment / Plan
Assessment:
RLE Cellulitis (exacerbated by diabetes state)
Generalized eczema, chronic
- did not tolerate Vancomycin (flush, chest tightness, throat tightness)
- continue IV Ancef. MRSA swab neg
- pain control
- elevated LE
- pruritus control with Atarax
- ID following
Leukocytosis noted today
type 2 DM
- newly diagnosed x 1 week ago
- continue Metformin
- continue SSI
- Diabetes education consult - patient is not versed on diabetes care, monitor etc
Parox A. Fib
- continue Nadolol and prn Flecainide
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 Will start Eliquis, d/w patient. software development project manager consulted for cost of Eliquis
Anemia
History of low hemoglobin, suspect chronic
Check iron panel, B12, folate
Hyponatremia
- resolved
DVT ppx: Lovenox
Code: Full
General: Well Developed, Well Nourished and Comfortable
HEENT: NormoCephalic, Anicteric, Moist mucous membranes, Atraumatic and PERRLA
Respiratory: Clear
Cardiac: S1/S2 and Regular Rhythm
GI: Soft, Non Tender, Non Distended and Normal Bowel Sounds
Musculoskeletal: No Clubbing, No Cyanosis and No Edema
Skin: Warm, Dry and Rash (Punctate skin breaks throughout the upper and lower extremities. More confluent erythema edema and tenderness in the right lower extremity)
Neuro: AO x 3 and Nonfocal/grossly intact
Psych: Calm
Anticipated Discharge: Within 24 hours
Subjective/Interval History
-
Date of Service: September 02, 2024
denies pain
Objective Data
-
Labs:
Laboratory Results
09/02/24
05:49
WBC 12.7 H
Hgb 8.4 L
Hct 28.4 L
Plt Count 314
Sodium 136
Potassium 4.2
Chloride 104
Carbon Dioxide 24
BUN 13
Creatinine 0.7
Glucose 114 H
Calcium 8.8
Vital Signs:
Vital Signs
Temp Pulse Resp BP Pulse Ox
98.7 F 65 16 128/63 99
09/02/24 07:39 09/02/24 07:39 09/02/24 07:39 09/02/24 07:39 09/02/24 07:39
I&O
09/01/24 09/02/24 09/03/24
06:59 06:59 06:59
Intake Total 240 / 240 930 / 930
Balance 240 / 240 930 / 930
[2024-09-02 11:25] LABS: Iron 30 ug/dl (37-170)
[2024-09-02 11:38] LABS: Glucose - Point of Care 117 mg/dl (70-99)
[2024-09-02] MEDS: ATARAX 25 MG PO ×2 (11:42→21:27)
[2024-09-02 11:43] LABS: Percent Saturation 7 % (20-50); Total Iron Binding Capacity 410 ug/dl (265-497)
[2024-09-02 12:28] LABS: Ferritin 8.5 ng/ml (6.24-137)
[2024-09-02 13:00] LABS: Folate 10.2 ng/ml (2.76-20); Vitamin B12 222 pg/ml (239-931)
--- NOTE | 2024-09-02 14:46 | W.PN.ID1 ---
Date of Service
Date of Service: September 02, 2024
Today's Communication
Continue cefazolin.
Assessment / Plan
Right lower extremity cellulitis
Multiple crusts on the extremities (?Secondary to itching/digital trauma)
Lower extremity lymphedema
Leukocytosis; improved
Anemia
DM
A-fib
Eczema
Obesity (BMI = 54)
Recommendations:
Continue with cefazolin for today.
Monitor white count; etiology of rise from yesterday unclear.
If continued improvement over next 24-48h, can be transition to oral cephalexin at the time of discharge.
-Given obesity, will likely require higher dosing. (1 gm PO QID)
Continue with lower extremity Gerardo wrap's.
Following discharge, patient has been counseled make an appointment in the lymphedema clinic
����������������������������������������������������������
Chief Complaint
-: Cellulitis
Subjective / Review of Systems
Patient seen and examined. No specific complaints at present.
Review of Systems: No Fever and No Chills
Vital Signs / Physical Exam
Vital Signs
Vital Signs
Temp Pulse Resp BP Pulse Ox
98.7 F 65 16 128/63 99
09/02/24 07:39 09/02/24 07:39 09/02/24 07:39 09/02/24 07:39 09/02/24 07:39
Physical Exam
Constitutional: No Acute Distress, Comfortable, Non-toxic and Obese
Eyes: Sclera Anicteric
Cardiovascular: S1/S2; Negative S3/S4
Pulmonary: Non Labored
Gastrointestinal: Soft and Non Tender
Extremities: Edema (B/L LE's) and Erythema (B/L LE's)
Wound: Other (Dressings and Gerardo wrap in place to the bilateral lower extremities)
Neurological: Awake and Alert
Psychological: Calm
Objective Data
Lab Data
Lab Results
09/02/24 05:49
09/02/24 05:49
Estimated Creat Clear > 125 ml/min 09/02/24 05:49
Most recent labs reviewed.
Micro Results:
09/01/24 08:13 MRSA Screen - Final
Nose No Methicillin Resistant Staphylococcus aureus isolated.
[2024-09-02 15:18] VITALS: BP 123/63
[2024-09-02] MEDS: FERRLECIT 110 MG IV (16:05)
[2024-09-02] MEDS: CYANOCOBALAMIN 1000 MCG IM (16:05)
[2024-09-02 17:02] LABS: Glucose - Point of Care 97 mg/dl (70-99)
[2024-09-02 21:27] LABS: Glucose - Point of Care 107 mg/dl (70-99)
[2024-09-02 23:33] VITALS: BP 107/52
[2024-09-03] MEDS: ANCEF 10 IV ×2 (02:27→09:44)
[2024-09-03 06:37] LABS: Hematocrit 30.2 % (37.0-47.0); Hemoglobin 8.9 g/dL (12.0-16.0); Mean Corp Hgb Conc. 29.5 g/dL (33.0-37.0); Mean Corpuscular Hgb 22.1 pg (27.0-31.0); Mean Corpuscular Volume 75.1 fL (81.0-99.0); Mean Platelet Volume 10.4 fL (7.4-10.4); Platelet Count 313 10^3/uL (130-400); Red Blood Cell Count 4.02 10^6/uL (4.20-5.40); Red Cell Dist. Width 17.3 % (11.5-14.5); White Blood Cell Count 10.1 10^3/uL (4.8-10.8)
[2024-09-03 07:02] LABS: Blood Urea Nitrogen 14 mg/dl (7-17); Calcium 8.8 mg/dl (8.4-10.2); Carbon Dioxide 26 mmol/L (22-30); Chloride 101 mmol/L (98-107); Estimated Creatinine Clearance 120 ml/min; Glucose 97 mg/dl (70-99); Potassium 4.2 mmol/L (3.5-5.1); Sodium 136 mmol/L (135-145); eGFR > 60.00
[2024-09-03 07:46] VITALS: BP 127/65
[2024-09-03 07:51] LABS: Glucose - Point of Care 98 mg/dl (70-99)
[2024-09-03] MEDS: NOVOLOG FLEXPEN-LOW RESISTANCE SC (09:32)
[2024-09-03] MEDS: CORGARD 20 MG PO (09:33)
--- NOTE | 2024-09-03 09:33 | W.PN.HOSP.TC ---
Addendum entered and electronically signed by Sandro Shaw MD 09/03/24 10:09:
Discussed with infectious disease, will transition to Keflex 1 g 4 times daily and discharge
Time of discharge 38 minutes
Original Note:
Today's Communication/Plan
-
Monitor vital signs see plan
Discharge today on p.o. antibiotics if okay with infectious disease
Continue with iron, vitamin B12
Assessment / Plan
Assessment / Plan
Assessment:
RLE Cellulitis (exacerbated by diabetes state)
Generalized eczema, chronic
- did not tolerate Vancomycin (flush, chest tightness, throat tightness)
- continue IV Ancef. MRSA swab neg. Switch to p.o. antibiotics if okay with infectious disease
- pain control
- elevated LE
- pruritus control with Atarax
- ID following
Leukocytosis Improved
type 2 DM
- newly diagnosed x 1 week ago
- continue Metformin
- continue SSI
- Diabetes education consult - patient is not versed on diabetes care, monitor etc
Parox A. Fib
- continue Nadolol and prn Flecainide
- [id number] score 2 (age, female) - not on AC watermaster but newly diagnosed DM. Will start Eliquis, d/w patient. concession manager consulted for cost of Eliquis
Anemia
History of low hemoglobin, suspect chronic
Low iron stores, started IV iron. Low vitamin B12. Replete. On discharge patient to follow-up with primary care provider. Will also need anemia workup with PCP
Hyponatremia
- resolved
DVT ppx: Lovenox
Code: Full
General: Well Developed, Well Nourished and Comfortable
HEENT: NormoCephalic, Anicteric, Moist mucous membranes, Atraumatic and PERRLA
Respiratory: Clear
Cardiac: S1/S2 and Regular Rhythm
GI: Soft, Non Tender, Non Distended and Normal Bowel Sounds
Musculoskeletal: No Clubbing, No Cyanosis and No Edema
Skin: Warm, Dry and Rash (Punctate skin breaks throughout the upper and lower extremities. More confluent erythema edema and tenderness in the right lower extremity)
Neuro: AO x 3 and Nonfocal/grossly intact
Psych: Calm
Anticipated Discharge: Today
Subjective/Interval History
-
Date of Service: September 03, 2024
Denies pain
Objective Data
-
Labs:
Laboratory Results
09/03/24
06:03
WBC 10.1
Hgb 8.9 L
Hct 30.2 L
Plt Count 313
Sodium 136
Potassium 4.2
Chloride 101
Carbon Dioxide 26
BUN 14
Creatinine 0.8
Glucose 97
Calcium 8.8
Vital Signs:
Vital Signs
Temp Pulse Resp BP Pulse Ox
98.1 F 62 18 127/65 99
09/03/24 07:46 09/03/24 07:46 09/03/24 07:46 09/03/24 07:46 09/03/24 07:46
I&O
09/02/24 09/03/24 09/04/24
06:59 06:59 06:59
Intake Total 930 / 930 1919
Balance 930 / 930 1919
[2024-09-03] MEDS: CYANOCOBALAMIN 1000 MCG IM (09:34)
[2024-09-03] MEDS: ELIQUIS 5 MG PO (09:34)
[2024-09-03] MEDS: GLUCOPHAGE XR EXTENDED RELEASE 500 MG PO (09:35)
--- NOTE | 2024-09-03 10:07 | W.PN.ID1 ---
Date of Service
Date of Service: September 03, 2024
Today's Communication
stable for dc from ID persepctive with keflex 1000 mg po qid x5 more days
Assessment / Plan
Right lower extremity cellulitis
Multiple crusts on the extremities (?Secondary to itching/digital trauma)
Lower extremity lymphedema
Leukocytosis; improved
Anemia
DM
A-fib
Eczema
Class III Obesity (BMI = 54)
Recommendations:
Continue with cefazolin for today.
Monitor white count; etiology of rise from yesterday unclear.
can be transition to oral cephalexin at the time of discharge.
-Given class III obesity, will likely require higher dosing. (1 gm PO QID) would do another 5 days
Continue with lower extremity Gerardo wrap's.
Following discharge, patient has been counseled make an appointment in the lymphedema clinic
����������������������������������������������������������
Chief Complaint
-: Cellulitis
Subjective / Review of Systems
afebrile
bp stable
no events overnight
Vital Signs / Physical Exam
Vital Signs
Vital Signs
Temp Pulse Resp BP Pulse Ox
98.1 F 62 18 127/65 99
09/03/24 07:46 09/03/24 07:46 09/03/24 07:46 09/03/24 07:46 09/03/24 07:46
Physical Exam
Constitutional: No Acute Distress
Cardiovascular: Regular Rate and S1/S2; Negative Murmur or Rub
Pulmonary: Clear and Symmetric; Negative Wheezes or Rales
Gastrointestinal: Soft, Non Tender, Non Distended and Normal Bowel Sounds
Skin: Warm and Dry; Negative Rash or Jaundice
Objective Data
Lab Data
Lab Results
09/03/24 06:03
09/03/24 06:03
Estimated Creat Clear 120 ml/min 02/21/25 06:03
Most recent labs reviewed.
Micro Results:
09/01/24 08:13 MRSA Screen - Final
Nose No Methicillin Resistant Staphylococcus aureus isolated.
Care Review
Plan reviewed with: Physician (Dr Colin morrissey)
--- NOTE | 2024-09-03 10:08 | W.DCSUMMARY ---
Discharge Summary
Discharge Data
Date of Admission: 09/02/24
Date of Discharge: 09/03/24
-
Pending Results: No
Hospital Course
49-year-old female with past medical history of paroxysmal atrial fibrillation, diabetes mellitus came to the hospital with right lower extremity cellulitis. Patient was initially started on IV antibiotics which was p.o. Antibiotics prior to
discharge. Patient was seen by infectious disease throughout hospitalization. On labs patient also had anemia which was likely thought was acute on chronic anemia. Patient did had low iron stores so was started on iron. She also had vitamin B12
deficiency and was started on vitamin B12. On discharge she was instructed to follow-up closely with PCP outpatient for her anemia workup. For her atrial fibrillation due to her chadvasc score of 2, she was started on Eliquis. Once her symptoms
continue to improve, she was then discharged home with instructions to follow-up with all her physicians outpatient.
Discharge Plan
-
Patient Disposition: Home (Routine Discharge)
Discharge Diagnosis/Procedures: Right lower extremity cellulitis
Diabetes mellitus
Iron deficiency anemia
Vitamin B12 deficiency
Diet: As tolerated
Activity Restrictions/Additional Instructions:
Please follow-up with primary care provider for anemia workup
Referrals:
NONE,* [Family Provider] - in less than 1 week
Prescriptions:
New
Eliquis 5 mg Tablet
5 mg PO BID Qty: 60 0RF
ferrous sulfate 325 mg (65 mg iron) tablet
325 mg PO DAILY Qty: 30 0RF
cyanocobalamin (vitamin B-12) 1,000 mcg capsule
1,000 mcg PO DAILY Qty: 30 0RF
Probiotic 10 billion cell capsule
10,000 mmu cells PO DAILY Qty: 10 0RF
cephalexin 500 mg capsule
1,000 mg PO QID 5 Days Qty: 40 0RF
Continued
nadolol 20 mg Tablet
20 mg PO BID
flecainide 50 mg Tablet
50 mg PO [id number] PRN (Reason: blood pressure)
metformin 500 mg Tablet Extended Release 24 Hr
500 mg PO DAILY
Discharge Orders:
Discharge Patient (As Directed); Ordered 09/03/24
Ordered By: Sandro Shaw
Discharge Date and Time
Discharge Date/Time: 09/03/24 12:25
Print Language: LATVIAN
[2024-09-03 14:31] LABS: Transferrin 320 mg/dL (200-360)
== END 2024-09-03 12:25 | disposition home or self-care (01) | DRG 603 ==
LOC: 3 WEST ACU 07:47
PROVIDERS: Internal Medicine; Physician Assistant Medical; ADMITTING PHYSICIAN Internal Medicine; ATTENDING PHYSICIAN Internal Medicine; EMERGENCY PHYSICIAN Student in an Organized Health Care Education/Training Program; OTHER PHYSICIAN Internal Medicine Infectious Disease
DX: L03.115 Cellulitis of right lower limb (principal); Z68.43 Body mass index [BMI] 50.0-59.9, adult; D50.9 Iron deficiency anemia, unspecified; E53.8 Deficiency of other specified B group vitamins; I48.0 Paroxysmal atrial fibrillation; E11.9 Type 2 diabetes mellitus without complications; E66.813 Obesity, class 3; L30.9 Dermatitis, unspecified; G43.909 Migraine, unspecified, not intractable, without status migrainosus; Z79.84 Long term (current) use of oral hypoglycemic drugs; F31.9 Bipolar disorder, unspecified; F41.9 Anxiety disorder, unspecified; K21.9 Gastro-esophageal reflux disease without esophagitis
CPT/HCPCS: 80048; 82550; 82607; 82728; 82746; 82962; 83540; 83550; 84466; 85025; 85027; 87070; 93971; 96365; 96366; 96375; 99285; J2916

== ENCOUNTER 2024-10-26 14:07 | Emergency (ER) | payer BC, SELFPAY ==
[2024-10-26 14:32] VITALS: BP 191/85
[2024-10-26 14:55] LABS: Hemoglobin 10.2 g/dL (12.0-16.0); Mean Corp Hgb Conc. 31.9 g/dL (33.0-37.0); Mean Corpuscular Hgb 24.9 pg (27.0-31.0); Mean Platelet Volume 10.4 fL (7.4-10.4); Platelet Count 328 10^3/uL (130-400); Red Cell Dist. Width 16.6 % (11.5-14.5); White Blood Cell Count 10.4 10^3/uL (4.8-10.8)
[2024-10-26 15:13] LABS: % Basophils 0.5 % (0-2); % Eosinophils 2.7 % (0-6); % Immature Granulocytes 0.5 % (0-0.5); % Lymphocytes 16.5 % (20.5-51.1); % Monocytes 6.5 % (1.7-9.3); % Neutrophils 73.3 % (42.2-75.2); Absolute Basophils 0.1 10^3/uL (0-0.2); Absolute Eosinophils 0.3 10^3/uL (0-0.7); Absolute Immature Granulocytes 0.1 10^3/uL (0-0.05); Absolute Lymphocytes 1.7 10^3/uL (1.2-3.4); Absolute Monocytes 0.7 10^3/uL (0.1-0.6); Absolute Neutrophils 7.6 10^3/uL (1.4-6.5); Nucleated Red Blood Cells % 0 %
[2024-10-26 15:19] LABS: HCG, Serum Qualitative Screen Negative
[2024-10-26 15:32] LABS: ALT (SGPT) 14 U/L (0-35); AST (SGOT) 22 U/L (14-36); Alkaline Phosphatase 81 U/L (38-126); Blood Urea Nitrogen 11 mg/dl (7-17); Calcium 9.2 mg/dl (8.4-10.2); Carbon Dioxide 22 mmol/L (22-30); Chloride 106 mmol/L (98-107); Glucose 168 mg/dl (70-99); Potassium 3.8 mmol/L (3.5-5.1); Sodium 139 mmol/L (135-145); Total Bilirubin 0.7 mg/dl (0.2-1.3); Total Protein 7.4 g/dl (6.3-8.2); eGFR > 60.00
[2024-10-26 16:01] VITALS: BMI 54.0
--- NOTE | 2024-10-26 16:43 | ED.GENMED ---
History of Present Illness
General
Chief Complaint: Skin Problem
Time Seen by Provider: 10/26/24 16:42
History of Present Illness
History of Present Illness:
TIME OF INITIAL ENCOUNTER: 5 PM
HPI: The patient was admitted here 2 months ago with right lower extremity cellulitis. At that time she had an intolerance to vancomycin. She was on IV and then oral antibiotics. She was doing well after she finished the antibiotics. Last month
while up in [place], she had recurrence of symptoms that were not as severe and was placed to [facility] with some improvement. Now the symptoms have returned to his bad as what they were when they first started.
EXAM:
GENERAL: Well appearing in no distress, elevated BMI noted
HEENT: Moist oral mucosa
CARDIOVASCULAR: No murmurs, normal heart rate, regular rhythm, No chest wall tenderness
PULMONARY: No respiratory distress, breath sounds are clear and equal
ABDOMEN: Soft with no peritoneal signs, no tenderness
NEUROLOGIC: Excellent strength all extremities, no coordination deficits
PSYCHIATRIC: Appropriate mental status, normal insight and judgement
EXTREMITIES: Nontender, no edema, moves all extremities equally
SKIN: Extensive erythema noted to the distal aspect of the right lower extremity with warm and some scattered wounds
NUMBER AND COMPLEXITY OF PROBLEMS ADDRESSED AT THE ENCOUNTER
� Chronic conditions affecting care: A-fib on Eliquis
� Acute Exacerbation and/or Progression of Chronic Illness: This is an acute but recurring problem
� Differential Diagnosis includes: Cellulitis, chronic cellulitis, wound infection
AMOUNT AND/OR COMPLEXITY OF DATA TO BE REVIEWED AND ANALYZED
� I performed an independent evaluation of and my interpretation is:
EKG:
CT:
X-rays:
Laboratory Studies: White count 10.4, hemoglobin 10.2, chemistries unremarkable however the glucose is 168
Other:
� Review of other/old records: I reviewed records, the patient was on IV cefazolin and then discharged on Keflex and was recommended for her to have 1 g p.o. 4 times daily
� Clinical information was obtained by an independent historian:
� Prescriptions/Medications Considered but not given:
� Further testing considered but not performed:
RISK OF COMPLICATIONS AND/OR MORBIDITY OR MORTALITY OF PATIENT MANAGEMENT
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
� Discussion with other providers:
� Escalation of care including admission/observation vs risk of discharge considered: Considered admission to the hospital however this time, the patient's white blood cell count is normal at 10.4. Her vital signs are not
consistent with sepsis. She is afebrile. She has not tried antibiotics over the last several days. We gave IV Ancef here and will give high-dose Keflex as an outpatient. She is to return here in 48 hours if symptoms or not improving or earlier
if worsening rapidly.
ANY OTHER UPDATES:
Past History
Past History
ED Past Medical History: GERD, Psychiatric (Bipolar disorder, anxiety) and Other (Migraine headaches, history of pancreatitis)
ED Past Surgical History: None
Social History
Tobacco: Non-smoker
Alcohol: Occasional
Drug: None
Personal:
Living: with family
Employment: Employed ([employer])
Phy Exam
Physical Exam
Physical Exam:
See HPI
Course
Orders/Labs/Results
Orders:
Orders
10/26/24 14:37
Test Result ONCE
10/26/24 14:44
Complete Blood Count/With Diff Urgent
Comprehensive Metabolic Panel Urgent
HCG, Serum Qualitative Screen Urgent
10/26/24 18:00
CeFAZolin SODIUM [Ancef] 3,000 mg Syringe [Syringe-Pump] 0 ml IV PRE PROCEDURE
Abnormal Lab Results
10/26/24
14:44
RBC 4.10 L 10^6/uL
(4.20-5.40)
Hgb 10.2 L g/dL
(12.0-16.0)
Hct 32.0 L %
(37.0-47.0)
MCV 78.0 L fL
(81.0-99.0)
MCH 24.9 L pg
(27.0-31.0)
MCHC 31.9 L g/dL
(33.0-37.0)
RDW 16.6 H %
(11.5-14.5)
Abs Immat Gran (auto) 0.1 H 10^3/uL
(0-0.05)
Absolute Neuts (auto) 7.6 H 10^3/uL
(1.4-6.5)
Absolute Monos (auto) 0.7 H 10^3/uL
(0.1-0.6)
Lymphocytes % 16.5 L %
(20.5-51.1)
Glucose 168 H mg/dl
(70-99)
10/26/24 14:44
10/26/24 14:44
Vital Signs
Initial and Last Documented VS:
Initial Vital Signs
Temp Pulse Resp BP Pulse Ox
37.0 C 72 18 191/85 99
10/26/24 14:32 10/26/24 14:32 10/26/24 14:32 10/26/24 14:32 10/26/24 14:32
Last Documented Vital Signs
Temp Pulse Resp BP Pulse Ox
37.0 C 62 16 182/76 100
10/26/24 14:32 10/26/24 18:09 10/26/24 18:09 10/26/24 18:09 10/26/24 18:09
*Critical Care Note
Total Time (30-74mins, 75-104mins- exclusive of procedures): Not Applicable
ED Attending Note
-
Portions of this chart may have been created with voice recognition software.� Occasional wrong word or��sound alike� substitutions may have occurred due to the inherent limitations of voice recognition software.
Discharge Plan
Departure
Patient Disposition: Home (Routine Discharge)
Date of Disposition: 10/26/24
Time of Disposition: 19:02
Patient with high blood pressure during this ER visit?: Yes
Discharge Problem:
Cellulitis
Instructions: Cellulitis (Skin Infection), Adult (DC)
Prescriptions:
New
cephalexin 500 mg tablet
1,000 mg PO QID Qty: 56 0RF
Rx Instructions:
I clarified this dose with infectious disease specialist
No Action
nadolol 20 mg Tablet
20 mg PO BID
flecainide 50 mg Tablet
50 mg PO [id number] PRN (Reason: blood pressure)
metformin 500 mg Tablet Extended Release 24 Hr
500 mg PO DAILY
ferrous sulfate 325 mg (65 mg iron) tablet
325 mg PO DAILY Qty: 30 0RF
cyanocobalamin (vitamin B-12) 1,000 mcg capsule
1,000 mcg PO DAILY Qty: 30 0RF
acetaminophen [Tylenol Extra Strength] 500 mg Tablet
1,000 mg PO Q4HPRN PRN (Reason: mild pain)
ibuprofen 400 mg Tablet
400 mg PO Q4HPRN PRN (Reason: mild pain)
Referrals:
Rosina De La Cruz CRNP [Family Provider] -
Stand Alone Forms: Return to Work
Activity Restrictions/Additional Instructions:
I reviewed your records. When you were here last time, the prescription was for Keflex 1000mg 4 times per day. Try to keep the leg elevated is much as possible. Return here if worse.
Interventions
Interventions:
*Risk Screen - Suicide Last Done: 10/26/24 16:01
*General Assessment Last Done: 10/26/24 14:32
*Neglect/Abuse Screening Last Done: 10/26/24 14:32
*ED- Fall Risk Assessment Last Done: 10/26/24 16:01
*ED COVID-19 Vaccine History Last Done: 10/26/24 14:32
ED-Skin Assessment Last Done: 10/26/24 16:01
Discharge Date and Time
Print Language: GUINEAN
[2024-10-26] MEDS: ANCEF 15 MG IV (18:08)
[2024-10-26 18:09] VITALS: BP 182/76
== END 2024-10-26 19:13 | disposition home or self-care (01) ==
LOC: EMR 14:07
PROVIDERS: Student in an Organized Health Care Education/Training Program; EMERGENCY PHYSICIAN Emergency Medicine; FAMILY PHYSICIAN Nurse Practitioner Primary Care
DX: L03.115 Cellulitis of right lower limb (principal)
CPT/HCPCS: 96374; 99284; 80053; 84703; 85025

== ENCOUNTER 2024-10-29 10:41 | Inpatient (IN) | payer BC, SELFPAY ==
[2024-10-29] VITALS (10 sets, daily range): BP systolic 132–195; BP diastolic 61–97; BMI 54.9; BMI 54.1
--- NOTE | 2024-10-29 09:08 | ED.GENMED ---
History of Present Illness
General
Chief Complaint: Skin Problem
Source: patient
Time Seen by Provider: 10/29/24 08:56
History of Present Illness
History of Present Illness:
49-year-old female presents to the emergency room complaining of pain, redness and suspected infection in her right lower extremity. Patient has had previous episodes of cellulitis in this leg. She was hospitalized here in August for cellulitis.
Patient was seen in the emergency room 2 to 3 days ago and started on oral Keflex 1 g 4 times a day. Patient states the area of redness has not changed but the pain has actually increased. She is particularly uncomfortable at night. She feels
unwell but has not had a fever or chills. Patient states she had a reaction to vancomycin in the past which was sensation of significant heartburn, throat discomfort, itching over her scalp and generally feeling terribly.
Past History
Past History
ED Past Medical History: GERD, Psychiatric (Bipolar disorder, anxiety) and Other (Migraine headaches, history of pancreatitis)
ED Past Surgical History: None
Social History
Tobacco: Non-smoker
Alcohol: Occasional
Drug: None
Personal:
Living: with family
Employment: Employed ([employer])
Phy Exam
Physical Exam
Physical Exam:
General: Awake, Alert, Oriented X3. No acute distress.
Vitals: unremarkable
Head: Atraumatic
Eyes: Pupils equal, EOMI
Throat: Airway intact, no exudates
Neck: Trachea midline
Lungs: Clear and equal b/l
Heart: Regular rate, no murmurs
Neuro: Nonfocal
Skin: Warm, dry, no rash
Extremities: pulses equal b/l, significant erythema, excoriation right lower extremity particularly laterally. There is serous type drainage. There is some scaling noted on the skin. Extremely tender to palpation. Redness is not circumferential.
There is a tattoo central to the area of erythema. left lower extremity has mild edema but otherwise looks normal.
Course
Orders/Labs/Results
Orders:
Orders
10/29/24 09:06
Acetaminophen [Tylenol] 1,000 mg PO NOW STA
10/29/24 09:13
CeFAZolin 2 GRAM [Ancef] 2 grams in 10 ml IV NOW
10/29/24 09:15
Basic Metabolic Panel Urgent
Complete Blood Count/With Diff Urgent
Wound Culture [Wound/Abscess/Other Culture] Urgent
GENI Source: Leg
Specimen Description: Right
Date Specimen was Collected: 10/29/24
Time Specimen was Collected: 09:12
Comment: serous drainage
10/29/24 10:33
Admit/Transfer Patient As Directed
Co-Sign Provider:
Level of Care: Inpatient admission
Assign to:: Medical/Surgical
Physician / Group: Hospitalist
Diagnosis: Cellulitis
Reason for Hospitalization: .
Expected length of stay greater than two midnights?: Yes
ELOS- Estimated Length of Stay in days: 3
I certify the patient meets the requirements for IP care: Yes
PRN Pain Medication Management As Directed
May give lesser potent ordered pain med per pt: Yes
preference::
Protocol:: Medication orders for pain may be administered in a
manner that supports deferring to patient preference
when the pt is:
- Requesting an ordered lesser potent pain medication.
Least to most potent pain medications are defined
as: acetaminophen < NSAID < tramadol < opioids
(morphine, oxycodone, hydromorphone).
- Requesting a lesser dose of the same medication IF
ORDERED.
- Requesting a less intrusive route of administration
if both routes are prescribed by the provider (PO <
IV).
10/29/24 10:34
Code Status As Directed
Resuscitation Status: Full Code
Abnormal Lab Results
10/29/24
09:15
Hgb 10.8 L g/dL
(12.0-16.0)
Hct 34.0 L %
(37.0-47.0)
MCV 77.6 L fL
(81.0-99.0)
MCH 24.7 L pg
(27.0-31.0)
MCHC 31.8 L g/dL
(33.0-37.0)
RDW 16.3 H %
(11.5-14.5)
MPV 10.6 H fL
(7.4-10.4)
Abs Immat Gran (auto) 0.1 H 10^3/uL
(0-0.05)
Immature Gran % 0.7 H %
(0-0.5)
Lymphocytes % 18.0 L %
(20.5-51.1)
Glucose 148 H mg/dl
(70-99)
10/29/24 09:15
10/29/24 09:15
Vital Signs
Initial and Last Documented VS:
Initial Vital Signs
Temp Pulse Resp BP Pulse Ox
98.2 F 77 16 150/97 99
10/29/24 08:48 10/29/24 08:48 10/29/24 08:48 10/29/24 08:48 10/29/24 08:48
Last Documented Vital Signs
Temp Pulse Resp BP Pulse Ox
98.6 F 72 18 171/73 100
10/29/24 09:23 10/29/24 09:23 10/29/24 09:23 10/29/24 09:23 10/29/24 09:24
MDM/Problems Addressed
Differential Diagnosis Includes:
Cellulitis, dermatitis
MDM/Problems Addressed:
Patient presents with persistent redness and pain right lateral lower extremity. No improvement since being on the milligrams of Keflex 4 times a day for the past couple days. Will start IV antibiotics as it appears she has failed outpatient
management. Will mid to the hospitalist.
*Pulse Oximetry
Patient hypoxic: no
*Critical Care Note
Total Time (30-74mins, 75-104mins- exclusive of procedures): Not Applicable
ED Attending Note
-
Portions of this chart may have been created with voice recognition software.� Occasional wrong word or��sound alike� substitutions may have occurred due to the inherent limitations of voice recognition software.
Discharge Plan
Departure
Patient Disposition: Admit
Date of Disposition: 10/29/24
Time of Disposition: 10:01
Admit to: Med/Surg
Presentation/result/management discussed w/ accepting MD/DO: Hospitalist
Condition: Fair
Discharge Problem:
Cellulitis of leg, right
Interventions
Interventions:
*Risk Screen - Suicide Last Done: 10/29/24 08:53
*General Assessment Last Done: 10/29/24 08:53
*Neglect/Abuse Screening Last Done: 10/29/24 08:53
*ED- Fall Risk Assessment Last Done: 10/29/24 08:54
*ED COVID-19 Vaccine History Last Done: 10/29/24 08:53
ED-Skin Assessment Last Done: 10/29/24 09:24
[2024-10-29] MEDS: ANCEF 10 IV ×2 (09:17→20:29)
[2024-10-29] MEDS: TYLENOL 1000 MG PO (09:17)
[2024-10-29 09:28] LABS: % Basophils 0.7 % (0-2); % Eosinophils 3.8 % (0-6); % Immature Granulocytes 0.7 % (0-0.5); % Monocytes 5.7 % (1.7-9.3); % Neutrophils 71.1 % (42.2-75.2); Absolute Basophils 0.1 10^3/uL (0-0.2); Absolute Eosinophils 0.3 10^3/uL (0-0.7); Absolute Immature Granulocytes 0.1 10^3/uL (0-0.05); Absolute Lymphocytes 1.5 10^3/uL (1.2-3.4); Absolute Monocytes 0.5 10^3/uL (0.1-0.6); Hemoglobin 10.8 g/dL (12.0-16.0); Mean Corp Hgb Conc. 31.8 g/dL (33.0-37.0); Mean Corpuscular Hgb 24.7 pg (27.0-31.0); Mean Corpuscular Volume 77.6 fL (81.0-99.0); Mean Platelet Volume 10.6 fL (7.4-10.4); Nucleated Red Blood Cells % 0 %; Platelet Count 370 10^3/uL (130-400); Red Blood Cell Count 4.38 10^6/uL (4.20-5.40); Red Cell Dist. Width 16.3 % (11.5-14.5); White Blood Cell Count 8.5 10^3/uL (4.8-10.8)
[2024-10-29 09:39] LABS: Blood Urea Nitrogen 9 mg/dl (7-17); Calcium 9.7 mg/dl (8.4-10.2); Carbon Dioxide 25 mmol/L (22-30); Chloride 105 mmol/L (98-107); Estimated Creatinine Clearance > 125 ml/min; Glucose 148 mg/dl (70-99); Potassium 4.4 mmol/L (3.5-5.1); Sodium 139 mmol/L (135-145); eGFR > 60.00
--- NOTE | 2024-10-29 10:32 | HPS.HSE ---
Family Physician
-
Family Physician: * NONE
Chief Complaint
-
Right lower extremity cellulitis, not responding to oral antibiotic
History of Present Illness
49 years old female came in from home. Patient started to have right lower extremity cellulitis in the last few months. She reportedly had an episode in July and she was given 7 days of oral antibiotic. Her legs did not clear fully but was not
giving her discomfort. She was admitted to the hospital for IV antibiotic in August this year, she later on had another bout of cellulitis in September and was given doxycycline for 7 days. At the end of the course she noticed improvement but no
complete resolution. She noticed another worsening of right lower extremity cellulitis and visited [facility] was given oral cephalexin treatment but did not have improvement and came back for further evaluation. No fever or chills. She
complained of itching in addition to discomfort/tenderness right lower extremity above the ankle.
Medical History
Past Medical History
Past Medical History: Reports Other (Obesity, atrial fibrillation, prediabetic)
Past Surgical History: Reports Other (No recent major surgery)
Social History
Tobacco: Non-smoker
Alcohol: None
Drug: None
Personal:
Living: With Family
Employment: Employed
Family History
Family History: Adopted
Allergies / Home Medications
Allergies reflects when Allergies were last updated in [facility].
Home Medications with original date entered in [facility]
Allergy/Medication List:
Allergies
Allergy/AdvReac Type Severity Reaction Status Date / Time
vancomycin AdvReac Intermediate Itching Verified 10/29/24 08:47
Home Medications
flecainide 50 mg tablet 50 mg PO [id number] PRN blood pressure 08/31/24
metformin 500 mg tablet,extended release 24 hr 500 mg PO DAILY Diabetes 08/31/24
nadolol 20 mg tablet 20 mg PO BID Arrhythmia 08/31/24
acetaminophen 500 mg tablet (Tylenol Extra Strength) 1,000 mg PO Q4HPRN PRN mild pain 10/26/24
ibuprofen 400 mg tablet 400 mg PO Q4HPRN PRN mild pain 10/26/24
cephalexin 500 mg capsule 1,000 mg PO QID Infection 10/29/24
cyanocobalamin (vitamin B-12) 1,000 mcg capsule 1,000 mcg PO DAILY Supplement 10/29/24
ferrous sulfate 325 mg (65 mg iron) tablet 325 mg PO DAILY Supplement 10/29/24
Review of Systems
-
History Source: Patient
A 12 point ROS was completed and negative except as noted: Yes
Constitutional: Denies Fever or Chills
EENT: Denies Sore Throat
Respiratory: Denies Cough
Cardiac: Denies Chest Pain
Abdomen/GI: Denies Abdominal Pain
: Denies Dysuria
Musculoskeletal: Reports Other (Right lower extremity erythema/discomfort/swelling)
Skin: Reports Other (Chronic itching)
Neurological: Denies Numbness
Endocrine: Denies Temp Intolerance
Hematologic/Lymphatic: Denies Bruising
Psych: Denies Panic Disorder
Physical Exam
Vital Signs
Vital Signs
Temp Pulse Resp BP Pulse Ox
98.6 F 72 18 171/73 100
10/29/24 09:23 10/29/24 09:23 10/29/24 09:23 10/29/24 09:23 10/29/24 09:24
Physical Exam
General: No Apparent Distress, Comfortable and Obese
HEENT: Anicteric and Moist mucous membranes
Respiratory: Clear
Cardiac: S1/S2 and Regular Rhythm
GI: Soft and Non Tender
Genito-urinary: No Da Silva
Musculoskeletal: Other (Right lower extremity erythema, swellings, tenderness above R ankle )
Skin: Other (Sick rash/skin picking costello )
Neuro: AO x 3 and Nonfocal/grossly intact
Psych: Calm and Intact Judgment/Insight
Laboratory Results
-
10/29/24 09:15
10/29/24 09:15
Impression/Plan
-
49 years old female presented with right lower extremity cellulitis
# RLE Cellulitis (exacerbated by diabetes state/skin picking disorder)
Skin picking disorder
- History of intolerance to Vancomycin (flush, chest tightness, throat tightness)
- Will do IV Ancef
- Walker hydrocortisone cream for itching
- elevated LE
- pruritus control with Atarax
-Order blood cultures
Appreciate ID input
Prediabetic, hemoglobin A1c 6.7
- continue Metformin
- continue SSI
# History of Parox A. Fib
- continue Nadolol and prn Flecainide
#Chronic Anemia
History of low hemoglobin
# Obesity BMI 54
Discussed patient options to lose weight. She verbalized understanding
Advised to follow with weight management clinic
DVT ppx: subcu heparin
Code: Full
Total time spent to see the patient, examine the patient, review data and lab result, discuss treatment plan with patient, ER doctor, nursing staff around 75 minutes
--- NOTE | 2024-10-29 12:15 | EDRN ---
admission orders were processed by this RN, pharmacy notified
--- NOTE | 2024-10-29 12:30 | EDRN ---
this RN provided the pt with a menu and phone in the room to call and order her lunch and dinner
--- NOTE | 2024-10-29 15:37 | CON.ID ---
Consultation
-
Date/Time Consultation Requested: 10/29/2024 1215
Date/Time Consultation Performed: 10/29/2024 1533
Requesting Provider: Dr. Elmore
Performing Provider: Dr. Carver
Reason for Consultation: Recurrent right lower extremity cellulitis
Chief Complaint / Past History
History of Present Illness
Kajal Adam is a 47-year-old female being evaluated at the request of Dr. Elmore in regards to recurrent right lower extremity cellulitis. History is obtained from chart review, along with patient interview.
The patient is known to the Infectious Diseases service, having been seen in August for right lower extremity cellulitis. At that time she improved on IV cefazolin, and was ultimately discharged to home on oral Keflex. She reports that things
cleared up following the completion of the antibiotics. Sheu notes that she visited her father in mid September in [place], and redeveloped right lower extremity erythema. She was seen in urgent care and was prescribed doxycycline. She reports
that the erythema somewhat improved, but did not resolve. She presented to the ER 2 days ago, and received a dose of IV antibiotics, and was discharged on cephalexin, but despite antibiotic therapy she has continued with lower extremity erythema
and discomfort. She notes that it is difficult to elevate the leg secondary to 'burning and stinging' of the area. She denies any fevers or chills. She admits to fatigue. She denies any groin swelling or pain. She admits to not using any lower
extremity compressive modalities.
Past History
Additional Past Medical History:
DM
A-fib
Eczema
Obesity (BMI = 54)
Past Surgical History: None
Allergy History:
vancomycin Adverse Reaction (Intermediate, Verified 10/29/24 08:47)
Itching
Medications Reviewed: Yes
Current Antibiotics:
Cefazolin 2 g IV every 8 hours
Social History
Tobacco: Non-Smoker
Alcohol: None
Drug: None
Personal:
Living: With Family
Employment: Employed ([place] at [employer])
Family History
Family History: Not Pertinent
Review of Systems
Vital Signs
Temp Pulse Resp BP Pulse Ox
98.6 F 57 20 132/61 99
10/29/24 09:23 10/29/24 12:30 10/29/24 12:30 10/29/24 12:30 10/29/24 12:30
Physical Exam
Physical Exam
Constitutional: No Acute Distress, Comfortable, Non-toxic and Obese
Head: Normocephalic
Eyes: Pupils Equal, Pupils Round, No Conjunctival Hemorrhage and Sclera Anicteric
Oral: No Thrush and No Ulcers
Cardiovascular: Regular Rate and S1/S2; Negative S3/S4
Pulmonary: Clear; Negative Wheezes or Rales
Gastrointestinal: Soft, Non Tender and Non Distended
Extremities: Edema (Bilateral extremities) and Erythema (RLE)
Skin: Rash (Multiple small crusts noted bilateral lower extremities R>L .)
Neurological: Awake and Alert
Psychological: Calm
Lab / Diagnostic Study Results
10/29/24 09:15
10/29/24 09:15
Abs Immat Gran (auto) 0.1 10^3/uL (0-0.05) H 10/29/24 09:15
Absolute Neuts (auto) 6.0 10^3/uL (1.4-6.5) 10/29/24 09:15
Absolute Lymphs (auto) 1.5 10^3/uL (1.2-3.4) 10/29/24 09:15
Absolute Monos (auto) 0.5 10^3/uL (0.1-0.6) 10/29/24 09:15
Absolute Basos (auto) 0.1 10^3/uL (0-0.2) 10/29/24 09:15
Immature Gran % 0.7 % (0-0.5) H 10/29/24 09:15
Neutrophils % 71.1 % (42.2-75.2) 10/29/24 09:15
Lymphocytes % 18.0 % (20.5-51.1) L 10/29/24 09:15
Monocytes % 5.7 % (1.7-9.3) 10/29/24 09:15
Eosinophils % 3.8 % (0-6) 10/29/24 09:15
Basophils % 0.7 % (0-2) 10/29/24 09:15
Microbiology Results
Micro:
10/29/24 11:13 Blood Culture - Pending
Blood/Venous
10/29/24 09:15 Wound Culture - Pending
Leg - Right Gram Stain - Final
Assessment / Plan
Right LE cellulitis
Lymphedema
DM
A-fib
Eczema
Obesity (BMI = 54)
Recommendations:
Continue cefazolin
Lower extremity elevations as is possible.
Lower extremity compressive modalities (Gerardo wrap)
Monitor for clinical improvement.
[2024-10-29] MEDS: NOVOLOG FLEXPEN-MODERATE RESISTANCE SC ×2 (16:23→17:27)
[2024-10-29 16:36] LABS: Glucose - Point of Care 128 mg/dl (70-99)
[2024-10-29] MEDS: ULTRAM 50 MG PO (17:58)
[2024-10-29] MEDS: HEPARIN 5000 UNITS SC (20:29)
[2024-10-29] MEDS: CORGARD 20 MG PO (20:29)
[2024-10-29 22:02] LABS: Glucose - Point of Care 106 mg/dl (70-99)
[2024-10-29] MEDS: HYDROCORTISONE 2.5% OINTMENT 1 APPLIC TOPICAL (22:54)
[2024-10-30] MEDS: ANCEF 10 IV ×3 (04:13→22:07)
[2024-10-30 07:02] VITALS: BP 147/92
[2024-10-30] MEDS: TAMBOCOR 50 MG PO (08:22)
[2024-10-30] MEDS: GLUCOPHAGE XR EXTENDED RELEASE 500 MG PO (08:22)
[2024-10-30] MEDS: CORGARD 20 MG PO ×2 (08:22→21:06)
--- NOTE | 2024-10-30 08:46 | W.PN.HOSP.TC ---
Today's Communication/Plan
-
Start Eliquis
Give her cardiac medicine
Order Telemetry
consult Cardiology
c/w Ancef
Assessment / Plan
Assessment / Plan
Physical Exam
General: No Apparent Distress, Comfortable and Obese
HEENT: Anicteric and Moist mucous membranes
Respiratory: Clear
Cardiac: S1/S2 and Regular Rhythm
GI: Soft and Non Tender
Genito-urinary: No Da Silva
Musculoskeletal: Other (Right lower extremity erythema, swellings, tenderness above R ankle )
Skin: Other (Sick rash/skin picking costello )
Neuro: AO x 3 and Nonfocal/grossly intact
Psych: Calm and Intact Judgment/Insight
49 years old female presented with right lower extremity cellulitis
# RLE Cellulitis (exacerbated by diabetes state/skin picking disorder)
Skin picking disorder
- History of intolerance to Vancomycin (flush, chest tightness, throat tightness)
- c/w IV Ancef 2 gm Q 8 hours.
- Topical hydrocortisone cream for itching
- elevated LE
- pruritus control with Atarax
-Order blood cultures
Appreciate ID input
Prediabetic, hemoglobin A1c 6.7
- continue Metformin
- continue SSI
# History of Parox A. Fib
She is in rapid A fib now
Order telemetry
She stopped taking Eliquis and has not seen her sales marketing manager Dr Reich
[id number] around 3 for sex, HTN, DM/Prediabetes. Started on Eliquis
- continue Nadolol and give prn Flecainide for now
Consult cardiology
#Chronic Anemia
History of low hemoglobin
# Obesity BMI 54
Discussed patient options to lose weight. She verbalized understanding
Advised to follow with weight management clinic
DVT ppx: Eliquis
Code: Full
Total time spent to see the patient, examine the patient, review data and lab result, discuss treatment plan with patient, nursing staff around 55 minutes
Anticipated Discharge: > 48 hours
Subjective/Interval History
-
Date of Service: October 30, 2024
No chest pain
feels a fib
No abdominal pain
Objective Data
-
Vital Signs:
Vital Signs
Temp Pulse Resp BP Pulse Ox
98.9 F 91 20 147/92 98
10/30/24 07:02 10/30/24 07:02 10/30/24 07:02 10/30/24 07:02 10/30/24 07:02
I&O
10/29/24 10/30/24 10/31/24
06:59 06:59 06:59
Intake Total 480 / 480
Balance 480 / 480
--- NOTE | 2024-10-30 08:47 | CON.CAR ---
Addendum entered and electronically signed by Yves Houser MD 10/30/24 11:51:
I saw and examined the patient.
The SHOE LINING FITTER's note was reviewed and I agree with the note.
Comment:
Ms. Adam is a 49 yo female with paroxysmal Afib, DM, obesity and right LE cellulitis, who presents with recurrent RLE cellulitis. Cardiology is consulted for atrial fibrillation which has since resolved. When she woke up this morning she felt
that she was in A-fib. She took her flecainide and converted back to sinus rhythm. Prior to admission, she had not been taking anticoagulation. She was prescribed it in August during the hospital stay and had 30 days free but has not refilled
it since then because she was waiting for a new prescription. She has concerns about being able to afford it. She has no CV complaints. Atrial fibrillation has been well-controlled with nadolol and as needed flecainide.
Physical exam reveals an obese woman in no acute distress, regular rate and rhythm, no murmurs, decreased breath sounds, RLE cellulitis
For her paroxysmal atrial fibrillation, we will continue her home strategy of nadolol with flecainide as needed. [id number] 2 (female, DM). She has concerns about being able to afford Eliquis. Consult case management for pricing. If not
affordable, start warfarin. She understands that she will have to get her INR checked frequently but would prefer that to an expensive medication.
She will need close follow-up with her outpatient clinical rn manager especially if she starts warfarin.
Original Note:
Consultation
Consultation Request
Date/Time Consultation Requested: 10/30/24 7:25a
Date/Time Consultation Performed: 10/30/24 8:30a
Requesting Provider: Dr. Elmore
Performing Provider: ANDERS Nicole for Dr. Houser
Reason for Consultation: Afib
Medical History
-
Chief Complaint: RLE cellulitis
History of Present Illness:
Ms. Adam is a 49 yo female with paroxysmal Afib, DM, obesity and right LE cellulitis, who presents with recurrent RLE cellulitis. She is admitted to the hospitalist service and we are consulted for rate controlled Afib. She was given Flecainide
this am and converted to NSR. Her [id number] VASc score is 2 (female, DM) and she was also given Eliquis. She states taking Eliquis as an outpatient, given initially during hospitalization 08/2024 for cellulitis. Her clinical rn manager is Dr. Reich at
[place].
Past Medical History
Past Medical History: Other (as above)
Social History
Tobacco: Non-Smoker
Alcohol: None
Personal:
Living: With Family
Family History
Family History: Adopted
Allergies / Home Medications
Allergy/AdvReac Type Severity Reaction Status Date / Time
vancomycin AdvReac Intermediate Itching Verified 10/29/24 08:47
�Medication �Instructions �Recorded �Confirmed �Type
flecainide 50 mg tablet 50 mg PO [id number] PRN blood pressure 08/31/24 10/29/24 History
metformin 500 mg tablet,extended 500 mg PO DAILY Diabetes 08/31/24 10/29/24 History
release 24 hr
nadolol 20 mg tablet 20 mg PO BID Arrhythmia 08/31/24 10/29/24 History
acetaminophen 500 mg tablet 1,000 mg PO Q4HPRN PRN mild pain 10/26/24 10/29/24 History
(Tylenol Extra Strength)
ibuprofen 400 mg tablet 400 mg PO Q4HPRN PRN mild pain 10/26/24 10/29/24 History
cephalexin 500 mg capsule 1,000 mg PO QID Infection 10/29/24 10/29/24 History
cyanocobalamin (vitamin B-12) 1,000 mcg PO DAILY Supplement 10/29/24 10/29/24 History
1,000 mcg capsule
ferrous sulfate 325 mg (65 mg 325 mg PO DAILY Supplement 10/29/24 10/29/24 History
iron) tablet
Review of Systems
-
History Source: Patient
All other systems: Negative unless noted
Physical Exam
Vital Signs
Temp Pulse Resp BP Pulse Ox
98.9 F 91 20 147/92 98
10/30/24 07:02 10/30/24 07:02 10/30/24 07:02 10/30/24 07:02 10/30/24 07:02
Lab Results
10/29/24 09:15
10/29/24 09:15
Physical Exam
General: Well Developed, No Apparent Distress and Other (obese )
HEENT: Normocephalic and Moist Mucous Membranes
Respiratory: Clear and Non Labored Respirations
Cardiac: S1/S2, Regular Rhythm and Peripheral Edema (b/l LE with victoria wraps intact)
Breast: Deferred by me
GI: Soft, Normal Bowel Sounds and Other (obese)
Rectal: Deferred by Provider
Genito-urinary: No Costovertebral Tender
Musculoskeletal: No Clubbing and No Cyanosis
Neuro: AO x 3
Psych: Calm
Impression / Plan
-
Afib - paroxysmal.
- rate controlled then converted to NSR after Flecainide.
- [id number] VASC score is 2 (female, DM) and on Eliquis 5mg BID.
- continue Nadalol and PRN Flecainide.
- follow up with Dr. Reich as outpatient.
Cellulitis - recurrent RLE.
- ID managing.
DM - per hospitalist.
Data Reviewed
-
EKG: Other (EKG ordered this am.)
Labs: Labs Reviewed by me
Old Records: Reviewed
[2024-10-30] MEDS: HYDROCORTISONE 2.5% OINTMENT 1 APPLIC TOPICAL ×2 (08:48→21:06)
[2024-10-30] MEDS: ELIQUIS 5 MG PO ×2 (08:48→21:06)
[2024-10-30 09:00] LABS: Glucose - Point of Care 117 mg/dl (70-99)
[2024-10-30] MEDS: NOVOLOG FLEXPEN-MODERATE RESISTANCE SC ×2 (09:03→17:21)
[2024-10-30 09:58] LABS: Glycohemoglobin (HgbA1c) 6.2 % (4.0-5.6)
[2024-10-30 11:41] VITALS: BP 136/66
[2024-10-30 12:17] LABS: Glucose - Point of Care 154 mg/dl (70-99)
[2024-10-30] MEDS: NOVOLOG FLEXPEN-MODERATE RESISTANCE 1 UNITS SC (12:27)
--- NOTE | 2024-10-30 13:38 | W.PN.ID1 ---
Date of Service
Date of Service: October 30, 2024
Today's Communication
Continue antibiotics
Assessment / Plan
Right LE cellulitis
Lymphedema
DM
A-fib
Eczema
Obesity (BMI = 54)
Recommendations:
Continue cefazolin.
Lower extremity elevations as is possible.
Lower extremity compressive modalities (Gerardo wrap)
Monitor for clinical improvement.
Chief Complaint
-: Cellulitis
Subjective / Review of Systems
Patient seen and examined. Notes leg feeling somewhat improved. Gerardo wrap's have been in place and she notes decreased overall edema.
Review of Systems: No Fever and No Chills
Vital Signs / Physical Exam
Vital Signs
Vital Signs
Temp Pulse Resp BP Pulse Ox
98.5 F 62 20 136/66 99
10/30/24 11:41 10/30/24 11:41 10/30/24 11:41 10/30/24 11:41 10/30/24 11:41
Physical Exam
Constitutional: No Acute Distress, Comfortable and Non-toxic
Eyes: Sclera Anicteric
Pulmonary: Non Labored
Extremities: Edema and Other (Gerardo wraps in place.)
Neurological: Awake and Alert
Psychological: Calm
Objective Data
Lab Data
Lab Results
10/29/24 09:15
10/29/24 09:15
Estimated Creat Clear > 125 ml/min 10/29/24 09:15
Most recent labs reviewed.
Micro Results:
10/29/24 11:13 Blood Culture - Preliminary
Blood/Venous No Growth in 24 hours- Final report to follow
10/29/24 09:15 Wound Culture - Preliminary
Leg - Right Gram Stain - Final
10/29/24 16:58 MRSA Screen - Pending
Nose
[2024-10-30 15:54] VITALS: BP 121/57
[2024-10-30 17:16] LABS: Glucose - Point of Care 118 mg/dl (70-99)
[2024-10-30 19:49] VITALS: BP 147/78
[2024-10-30 21:04] VITALS: BP 142/80
[2024-10-30] MEDS: TYLENOL 1000 MG PO (21:05)
[2024-10-30] MEDS: ANCEF IV (21:06)
[2024-10-30 21:57] LABS: Glucose - Point of Care 92 mg/dl (70-99)
[2024-10-30 22:51] VITALS: BP 153/83
[2024-10-31] VITALS (7 sets, daily range): BP systolic 115–151; BP diastolic 54–86
[2024-10-31] MEDS: ANCEF 10 IV ×3 (04:16→22:01)
[2024-10-31 07:57] LABS: Glucose - Point of Care 92 mg/dl (70-99)
[2024-10-31] MEDS: NOVOLOG FLEXPEN-MODERATE RESISTANCE SC ×2 (08:10→16:55)
[2024-10-31] MEDS: GLUCOPHAGE XR EXTENDED RELEASE 500 MG PO (08:16)
[2024-10-31] MEDS: HYDROCORTISONE 2.5% OINTMENT 1 APPLIC TOPICAL (08:16)
[2024-10-31] MEDS: ELIQUIS 5 MG PO (08:16)
[2024-10-31] MEDS: CORGARD 20 MG PO ×2 (08:17→20:23)
--- NOTE | 2024-10-31 09:12 | W.PN.HOSP.TC ---
Today's Communication/Plan
-
continue with IV Ancef
Continue with Eliquis and nadolol
Assessment / Plan
Assessment / Plan
Physical Exam
General: No Apparent Distress, Comfortable and Obese
HEENT: Anicteric and Moist mucous membranes
Respiratory: Clear
Cardiac: S1/S2 and Regular Rhythm
GI: Soft and Non Tender
Genito-urinary: No Da Silva
Musculoskeletal: Other (Right lower extremity erythema, swellings, tenderness above R ankle )
Skin: Other (Sick rash/skin picking costello )
Neuro: AO x 3 and Nonfocal/grossly intact
Psych: Calm and Intact Judgment/Insight
49 years old female presented with right lower extremity cellulitis
# RLE Cellulitis (exacerbated by diabetes state/skin picking disorder)
Skin picking disorder
- History of intolerance to Vancomycin (flush, chest tightness, throat tightness)
Good clinical improvement, much reduction in redness and swelling with compression dressing.
- c/w IV Ancef 2 gm Q 8 hours.
- Topical hydrocortisone cream for itching
- elevated LE
- pruritus control with Atarax
- Blood culture NGTD
Appreciate ID input
Prediabetic, hemoglobin A1c 6.7
- continue Metformin
- continue SSI
# History of Parox A. Fib
She is back in SR, controlled rhythm now
c/w telemetry
She stopped taking Eliquis and has not seen her transportation inspector Dr Reich
[id number] around 3 for sex, HTN, DM/Prediabetes. Started on Eliquis
- continue Nadolol and given prn Flecainide for now
Discussed anticoagulation options with the patient including warfarin and direct anticoagulants. Due to her busy lifestyle, she would rather be on Eliquis. She verbalized understanding to potential benefits and side effects of systemic
anticoagulation.
Consulted cardiology
#Chronic Anemia
History of low hemoglobin
# Obesity BMI 54
Discussed patient options to lose weight. She verbalized understanding
Advised to follow with weight management clinic
DVT ppx: Eliquis
Code: Full
Total time spent to see the patient, examine the patient, review data and lab result, discuss treatment plan with patient, nursing staff around 55 minutes
Anticipated Discharge: 24 - 48 hours
Subjective/Interval History
-
Date of Service: October 31, 2024
She is feeling better
No chest pain or palpitations or sob
No fevers
Objective Data
-
Vital Signs:
Vital Signs
Temp Pulse Resp BP Pulse Ox
98.7 F 60 16 140/73 97
10/31/24 07:49 10/31/24 07:49 10/31/24 07:49 10/31/24 07:49 10/31/24 07:49
I&O
10/30/24 10/31/24 11/01/24
06:59 06:59 06:59
Intake Total 480 / 480 1440 / 1440
Balance 480 / 480 1440 / 1440
--- NOTE | 2024-10-31 10:04 | CM ---
Met with patient at bedside
CM Consult Completed: Per patient's pharmacy patient's co-pay for Xarelto 15 mg daily, 30 day supply is $115; and for Eliquis 5 mg Bid, 30 day supply co-pay is $115
Pharmacy verified: [facility] @ [address] [place] [address]
Family Care Provider: ANDERS Guillen
Patient lives with ; multilevel home; 5 steps to enter; 12-13 steps between floors; railings on stairs; bath has tub w/shower
PLOF: patient reported she is independent with ambulation, stairs, ADLs; works full time paramedic; drives; has a car
DME: [employer]
Transportation: drove self to hospital; if instructed not to drive, family can provide transport home
NO SNF or Home Health utilization history
Plan: discharge to home when medically stable; CM will monitor for discharge needs
[2024-10-31 11:57] LABS: Glucose - Point of Care 150 mg/dl (70-99)
[2024-10-31] MEDS: NOVOLOG FLEXPEN-MODERATE RESISTANCE 1 UNITS SC (12:08)
--- NOTE | 2024-10-31 14:18 | W.PN.CD ---
Today's Communication / Plan
-
Continue nadolol and as needed flecainide for paroxysmal AF
Continue Eliquis for now. She is still deciding if she can afford this.
Start warfarin in case she decides no DOAC
Impression / Plan
-
Ms. Adam is a 49 yo female with paroxysmal Afib, DM, obesity and right LE cellulitis, who presents with recurrent RLE cellulitis. Cardiology is consulted for atrial fibrillation which has since resolved
Afib - paroxysmal.
- has had a few short paroxysms of AF here
- [id number] VASC score is 2 (female, DM). Eliquis $115/month. Xarelto $115/month, Dabigatran $70/month. She is still deciding if she wants to do DOAC or warfarin.
- Start warfarin tonight in case she winds up deciding to do this so that we can get INR to goal. She is aware of frequent lab checks, dietary restrictions, interactions with antibiotics but may not be able to afford DOAC.
- continue Nadalol and PRN Flecainide
- follow up with Dr. Reich as outpatient
Cellulitis - recurrent RLE.
- ID managing
DM - per hospitalist.
Subjective: Brief episode of symptomatic A-fib yesterday around 1 PM. Lasted 1-2 minutes. Currently asymptomatic.
Physical Exam
Vital Signs/Labs
Vital Signs
Temp Pulse Resp BP Pulse Ox
98.6 F 54 20 115/54 99
10/31/24 11:49 10/31/24 11:49 10/31/24 11:49 10/31/24 11:49 10/31/24 11:49
10/30/24 10/31/24 11/01/24
06:59 06:59 06:59
Actual Weight 305 lb 3 oz
10/29/24 09:15
10/29/24 09:15
Physical Exam
Constitutional: No acute distress and Comfortable
Cardiovascular: Rhythm & rate is regular, Pedal edema is absent, S1S2 is normal and Murmur/rub/gallop absent
Respiratory: Respiratory effort normal and Lungs clear to auscul.
Neuro/Psych: AO x 3
Data Reviewed
-
Date of Service: October 31, 2024
Medical Decision Making: Reviewed Test Results, Independent Historian Assessment, Test Interpretation and Review of Case with other Provider
EKG: Tracing Personally Visualized and interpreted
Labs: Labs Reviewed by me
--- NOTE | 2024-10-31 14:38 | W.PN.ID1 ---
Date of Service
Date of Service: October 31, 2024
Today's Communication
Continue abx.
Assessment / Plan
Right LE cellulitis
Lymphedema
DM
A-fib
Eczema
Obesity (BMI = 54)
Recommendations:
Continue cefazolin while inpatient.
Transition to keflex 500 mg QID at D/C. Continue abx through 11/07.
Lower extremity elevations as is possible.
Lower extremity compressive modalities (Gerardo wrap)
Counseled patient on moisturizing the left lower extremity.
����������������������������������������������������������
Chief Complaint
-: Cellulitis
Subjective / Review of Systems
Review of Systems: No Fever and No Chills
Vital Signs / Physical Exam
Vital Signs
Vital Signs
Temp Pulse Resp BP Pulse Ox
98.6 F 54 20 115/54 99
10/31/24 11:49 10/31/24 11:49 10/31/24 11:49 10/31/24 11:49 10/31/24 11:49
Physical Exam
Constitutional: No Acute Distress
Eyes: Sclera Anicteric
Cardiovascular: S1/S2; Negative S3/S4
Pulmonary: Non Labored
Extremities: Edema and Other (Gerardo wraps in place. Overall improved erythema of the right lateral lower extremity noted.)
Neurological: Awake and Alert
Psychological: Calm
Objective Data
Lab Data
Lab Results
10/29/24 09:15
10/29/24 09:15
Estimated Creat Clear > 125 ml/min 10/29/24 09:15
Most recent labs reviewed.
Micro Results:
10/29/24 11:13 Blood Culture - Preliminary
Blood/Venous No Growth in 48 hours- Final report to follow
10/29/24 09:15 Wound Culture - Preliminary
Leg - Right Staphylococcus aureus
Gram Stain - Final
10/29/24 16:58 MRSA Screen - Final
Nose No Methicillin Resistant Staphylococcus aureus isolated.
Care Review
Plan reviewed with: Physician (Hospitalist)
[2024-10-31 16:54] LABS: Glucose - Point of Care 126 mg/dl (70-99)
[2024-10-31] MEDS: COUMADIN 5 MG PO (17:05)
[2024-10-31] MEDS: ELIQUIS PO (20:18)
[2024-10-31] MEDS: HYDROCORTISONE 2.5% OINTMENT TOPICAL (20:23)
[2024-10-31] MEDS: ANCEF IV (20:23)
[2024-10-31 22:13] LABS: Glucose - Point of Care 99 mg/dl (70-99)
[2024-11-01 03:00] VITALS: BP 102/73
[2024-11-01] MEDS: ANCEF 10 IV ×2 (04:05→12:34)
[2024-11-01 07:36] VITALS: BP 132/68
[2024-11-01 08:06] LABS: INR 1.35; PT 16.9 Sec (11.4-14.6)
[2024-11-01 08:14] LABS: Glucose - Point of Care 103 mg/dl (70-99)
[2024-11-01] MEDS: NOVOLOG FLEXPEN-MODERATE RESISTANCE SC ×2 (08:24→12:11)
[2024-11-01] MEDS: GLUCOPHAGE XR EXTENDED RELEASE 500 MG PO (08:39)
[2024-11-01] MEDS: CORGARD 20 MG PO (08:40)
[2024-11-01] MEDS: HYDROCORTISONE 2.5% OINTMENT 1 APPLIC TOPICAL (08:41)
[2024-11-01 11:28] VITALS: BP 157/73
--- NOTE | 2024-11-01 11:41 | W.DCSUMMARY ---
Discharge Summary
Discharge Data
Date of Admission: 10/29/24
Date of Discharge: 11/01/24
-
Pending Results: No
Hospital Course
Ms. Adam is a 49-year-old female with a medical history of paroxysmal A-fib, lvb-ogbbezv-jrwslzjsz diabetes mellitus, and recurrent right lower extremity cellulitis who presented with another recurrence of her right lower extremity cellulitis.
She failed outpatient antibiotic treatment. However her cellulitis improved significantly with IV antibiotics and local wound care and compression. She will be transitioned to a course of cephalexin 500 mg p.o. 4 times daily through 11/07/2024.
She should keep her lower extremity elevated as possible and continue compression. She should continue local wound care and avoid picking at the dry skin on her shins. She is also encouraged to use topical creams such as hydrocortisone and
Vaseline. She should also continue her diabetic regimen for appropriate blood glucose control.
She was also noted to have a few paroxysms of atrial fibrillation during this hospitalization. She was previously diagnosed with A-fib during a hospitalization in August 2024 and started on atenolol, as needed flecainide, and anticoagulation with
Eliquis. She has not followed up with a weekend receptionist and has not refilled her Eliquis after her 30-day free trial due to concerns about affordability. During this hospitalization she has worked with case management and cardiology and decided to
continue anticoagulation with Eliquis. She will continue rate control with scheduled nadolol and as needed flecainide for paroxysms of her atrial fibrillation. She was medically stable at time of hospital discharge.
General: No Apparent Distress, Comfortable and Conversant
HEENT: NormoCephalic, Moist mucous membranes, Atraumatic
Respiratory: Clear and Non Labored Respirations
Cardiac: S1/S2 and Regular Rhythm; No Rub or Gallop
GI: Soft, Non Tender, Non Distended and Normal Bowel Sounds
Musculoskeletal: Right lower extremity wound dressing and Gerardo wrap in place, no deformity
: NO Da Silva
Neuro: Awake, Alert, Nonfocal/grossly intact
Psych: Calm and Intact Judgment/Insight
Discharge Plan
-
Patient Disposition: Home (Routine Discharge)
Discharge Diagnosis/Procedures: Right lower extremity cellulitis, A-fib
Diet: Diabetic, Carb Controlled
Activity: As tolerated
Activity Restrictions/Additional Instructions:
Ms. Adam is a 49-year-old female with a medical history of paroxysmal A-fib, gea-[id number]-tvhjazwdw diabetes mellitus, and recurrent right lower extremity cellulitis who presented with another recurrence of her right lower extremity cellulitis.
She failed outpatient antibiotic treatment. However her cellulitis improved significantly with IV antibiotics and local wound care and compression. She will be transitioned to a course of cephalexin 500 mg p.o. 4 times daily through 11/07/2024.
She should keep her lower extremity elevated as possible and continue compression. She should continue local wound care and avoid picking at the dry skin on her shins. She is also encouraged to use topical creams such as hydrocortisone and
Vaseline. She should also continue her diabetic regimen for appropriate blood glucose control.
She was also noted to have a few paroxysms of atrial fibrillation during this hospitalization. She was previously diagnosed with A-fib during a hospitalization in August 2024 and started on atenolol, as needed flecainide, and anticoagulation with
Eliquis. She has not followed up with a weekend receptionist and has not refilled her Eliquis after her 30-day free trial due to concerns about affordability. During this hospitalization she has worked with case management and cardiology and decided to
continue anticoagulation with Eliquis. She will continue rate control with scheduled nadolol and as needed flecainide for paroxysms of her atrial fibrillation.
Referrals:
NONE,* [Family Provider] -
Cristian Ramirez MD [Active] -
Prescriptions:
New
Eliquis 5 mg tablet
5 mg PO BID 30 Days Qty: 60 0RF
cephalexin 500 mg capsule
500 mg PO QID 7 Days Qty: 28 0RF
Continued
flecainide 50 mg Tablet
50 mg PO [id number] PRN (Reason: blood pressure)
metformin 500 mg Tablet Extended Release 24 Hr
500 mg PO DAILY
acetaminophen [Tylenol Extra Strength] 500 mg Tablet
1,000 mg PO Q4HPRN PRN (Reason: mild pain)
ibuprofen 400 mg Tablet
400 mg PO Q4HPRN PRN (Reason: mild pain)
ferrous sulfate 325 mg (65 mg iron) tablet
325 mg PO DAILY
cyanocobalamin (vitamin B-12) 1,000 mcg capsule
1,000 mcg PO DAILY
nadolol 20 mg Tablet
20 mg PO BID 30 Days Qty: 60 0RF
Discontinued
cephalexin 500 mg Capsule
1,000 mg PO QID
Discharge Orders:
Discharge Patient (As Directed); Ordered 11/01/24
Ordered By: Tyshawn Cancino
Discharge Date and Time
Print Language: [place]
[2024-11-01 11:47] LABS: Glucose - Point of Care 127 mg/dl (70-99)
--- NOTE | 2024-11-01 12:04 | CM ---
Chart reviewed. Patient stable for d/c today
No CM needs identified at this time
Plan: Home; no needs
--- NOTE | 2024-11-01 12:37 | W.PN.CD ---
Today's Communication / Plan
-
Nadolol and flecainide as needed for A-fib
Eliquis 5 mg twice daily
Impression / Plan
-
Ms. Adam is a 49 yo female with paroxysmal Afib, DM, obesity and right LE cellulitis, who presents with recurrent RLE cellulitis. Cardiology is consulted for atrial fibrillation which has since resolved
Afib - paroxysmal.
- has had a few short paroxysms of AF here
- [id number] VASC score is 2 (female, DM). Eliquis $115/month. Xarelto $115/month, Dabigatran $70/month. She is still deciding if she wants to do DOAC or warfarin.
- Continue Eliquis 5 mg twice daily
- continue Nadalol and PRN Flecainide
- follow up with Dr. Reich as outpatient
Cellulitis - recurrent RLE.
- ID managing
DM - per hospitalist.
Subjective: No atrial fibrillation in the last 24 hours. She decided on Eliquis.
Physical Exam
Vital Signs/Labs
Vital Signs
Temp Pulse Resp BP Pulse Ox
97.9 F 58 16 157/73 100
11/01/24 11:28 11/01/24 11:28 11/01/24 11:28 11/01/24 11:28 11/01/24 11:28
10/29/24 09:15
10/29/24 09:15
PT 16.9 Sec (11.4-14.6) H 11/01/24 07:28
INR 1.35 11/01/24 07:28
Physical Exam
Constitutional: No acute distress and Comfortable
EENT: Anicteric
Cardiovascular: Rhythm & rate is regular, Pedal edema is absent, S1S2 is normal and Murmur/rub/gallop absent
Respiratory: Respiratory effort normal and Lungs clear to auscul.
Neuro/Psych: AO x 3
Data Reviewed
-
Date of Service: November 01, 2024
Medical Decision Making: Reviewed Test Results, Independent Historian Assessment, Test Interpretation and Review of Case with other Provider
EKG: Tracing Personally Visualized and interpreted
Labs: Labs Reviewed by me
[2024-11-01] MEDS: ELIQUIS 5 MG PO (13:04)
== END 2024-11-01 13:09 | disposition home or self-care (01) | DRG 603 ==
LOC: 4 WEST ACU 10:41
PROVIDERS: Student in an Organized Health Care Education/Training Program; ADMITTING PHYSICIAN Internal Medicine; ATTENDING PHYSICIAN Internal Medicine; CONSULT PHYSICIAN Internal Medicine Cardiovascular Disease; CONSULT PHYSICIAN Student in an Organized Health Care Education/Training Program; EMERGENCY PHYSICIAN Emergency Medicine
DX: L03.115 Cellulitis of right lower limb (principal); Z68.43 Body mass index [BMI] 50.0-59.9, adult; I48.0 Paroxysmal atrial fibrillation; E11.9 Type 2 diabetes mellitus without complications; E66.9 Obesity, unspecified; F42.4 Excoriation (skin-picking) disorder; Z79.01 Long term (current) use of anticoagulants; Z79.84 Long term (current) use of oral hypoglycemic drugs
CPT/HCPCS: 80048; 82962; 83036; 85025; 85610; 87040; 87070; 87147; 87186; 87205; 93005; 96374; 99284

== ENCOUNTER 2025-01-30 06:33 | Inpatient (IN) | payer BC, SELFPAY ==
[2025-01-30] VITALS (22 sets, daily range): BP systolic 122–198; BP diastolic 50–102; BMI 55.1; BMI 54.6
--- NOTE | 2025-01-30 03:43 | ED.GENMED ---
History of Present Illness
<Gordy Turcios MD, Resident - Last Filed: 01/30/25 05:33>
General
Chief Complaint: Abdominal Pain
Source: patient
Exam Limitations: none
Time Seen by Provider: 01/30/25 03:42
Nursing documentation reviewed up to this point in time: agreed with
History of Present Illness
History of Present Illness:
This is a 49-year-old female with history of paroxysmal A-fib, asthma, GERD, history of pancreatitis, jwm-zyvivqs-xaaghgdxp diabetes, chronic anemia, anxiety, bipolar disorder, depression presenting in the emergency department with complaints of
sudden onset of abdominal pain and reports that it is 9/10, started around midnight. Denies any fevers or chills. Denies any constipation or diarrhea. She tried taking an antacid however had 1 episode of vomiting soon after she took the antacid.
Denies any recent sickness or sick contacts. Denies any trouble breathing or any urinary symptoms. denies use of blood thinners. she was on Ozempic for diabetes and weight loss however for the last 1 month she is not using that since she cannot
afford it. No other changes in the medical
Past History
<Gordy Turcios MD, Resident - Last Filed: 01/30/25 05:33>
Past History
ED Past Medical History: Arrthythmia, GERD, Psychiatric (Bipolar disorder, anxiety) and Other (Migraine headaches, history of pancreatitis)
ED Past Surgical History: None
Patient has exhibited threatening behavior?: No
Social History
Tobacco: Non-smoker
Alcohol: Occasional
Drug: None
Personal:
Living: with family
Employment: Employed ([employer])
Family History
Family History: Other (Noncontributory)
Review of Systems
<Gordy Turcios MD, Resident - Last Filed: 01/30/25 05:33>
Review of Systems
Allergies reviewed?: Yes
Constitutional: Denies fever or chills
EENT: Denies sore throat
Respiratory: Denies cough
Cardiac: Denies chest pain
ABD/GI: Reports abdominal pain, nausea and vomiting; Denies diarrhea or constipated
: Denies dysuria or frequency
Musculoskeletal: Denies joint pain
Skin: Denies itching
Neurological: Denies dizzy
Hematologic/Lymphatic: Denies bleeding
Phy Exam
<Gordy Turcios MD, Resident - Last Filed: 01/30/25 05:33>
General Physical Exam
General Presentation: moderate distress
General age: appears stated age
General Skin: warm
General Habitus: obese
General Mental: alert
General Hydration: appears well hydrated
Cardiovascular Exam
Cardiovascular Exam: regular rate/rhythm and no murmur
Pulmonary Exam
Pulmonary Exam: lungs clear
Gastrointestinal Exam
Gastrointestinal Exam: soft, non distended and tender (Generalized)
Course
<Gordy Turcios MD, Resident - Last Filed: 01/30/25 05:33>
Orders/Labs/Results
Orders:
Orders
01/30/25 03:14
EKG [Electrocardiogram (*1)] Urgent
Reason for Study: Abdominal Pain
EKG- Treatment ONCE
01/30/25 03:23
IV Insert/Care/Rem.- Treatment PRN
01/30/25 03:24
Test Result ONCE
01/30/25 03:34
Complete Blood Count/With Diff Urgent
Comprehensive Metabolic Panel Urgent
HCG, Serum Qualitative Screen Urgent
Lipase Urgent
01/30/25 03:58
HYDROmorphone [Dilaudid] 0.5 mg IV NOW STA
Ondansetron Injectable [Zofran] 4 mg IV NOW STA
01/30/25 04:00
Lactated Ringers [Lr] 1,000 ml IV BOLUS
01/30/25 04:04
CT Abd/pelvis W Iv Cont Urgent
Comment:
Reason For Exam: abdominal pain. elevated lipase
01/30/25 04:22
0.9% Sodium Chloride 1000 ml [Nss] 1,000 ml IV BOLUS
01/30/25 05:29
HYDROmorphone [Dilaudid] 1 mg IV NOW STA
01/30/25 05:45
US Abdomen Complete/Upper Stat
Comment:
Reason For Exam: eval for acute cholecystitis
01/30/25 05:54
Admit/Transfer Patient As Directed
Co-Sign Provider:
Level of Care: Inpatient admission
Assign to:: Medical/Surgical
Physician / Group: Mauro
Diagnosis: pancreatitis
Reason for Hospitalization: pancreatitis w/ possible cholecystitis
Expected length of stay greater than two midnights?: Yes
ELOS- Estimated Length of Stay in days: 2
I certify the patient meets the requirements for IP care: Yes
01/30/25 05:57
Code Status As Directed
Resuscitation Status: Full Code
Abnormal Lab Results
01/30/25
03:34
RBC 3.83 L 10^6/uL
(4.20-5.40)
Hgb 10.4 L g/dL
(12.0-16.0)
Hct 32.0 L %
(37.0-47.0)
MCHC 32.5 L g/dL
(33.0-37.0)
RDW 15.5 H %
(11.5-14.5)
Abs Immat Gran (auto) 0.1 H 10^3/uL
(0-0.05)
Absolute Neuts (auto) 7.4 H 10^3/uL
(1.4-6.5)
Absolute Monos (auto) 0.9 H 10^3/uL
(0.1-0.6)
Immature Gran % 0.8 H %
(0-0.5)
Lymphocytes % 13.7 L %
(20.5-51.1)
Glucose 198 H mg/dl
(70-99)
Lipase 663 H U/L
(23-300)
01/30/25 03:34
01/30/25 03:34
Vital Signs
Initial and Last Documented VS:
Initial Vital Signs
Temp Pulse Resp BP Pulse Ox
98.5 F 85 24 198/102 100
01/30/25 03:09 01/30/25 03:09 01/30/25 03:09 01/30/25 03:09 01/30/25 03:09
Last Documented Vital Signs
Temp Pulse Resp BP Pulse Ox
98.5 F 79 15 166/78 100
01/30/25 03:09 01/30/25 03:31 01/30/25 03:31 01/30/25 03:31 01/30/25 03:43
<Karie Blackburn DO - Last Filed: 01/30/25 06:38>
Orders/Labs/Results
Orders:
Orders
01/30/25 03:14
EKG [Electrocardiogram (*1)] Urgent
Reason for Study: Abdominal Pain
EKG- Treatment ONCE
01/30/25 03:23
IV Insert/Care/Rem.- Treatment PRN
01/30/25 03:24
Test Result ONCE
01/30/25 03:34
Complete Blood Count/With Diff Urgent
Comprehensive Metabolic Panel Urgent
HCG, Serum Qualitative Screen Urgent
Lipase Urgent
01/30/25 03:58
HYDROmorphone [Dilaudid] 0.5 mg IV NOW STA
Ondansetron Injectable [Zofran] 4 mg IV NOW STA
01/30/25 04:00
Lactated Ringers [Lr] 1,000 ml IV BOLUS
01/30/25 04:04
CT Abd/pelvis W Iv Cont Urgent
Comment:
Reason For Exam: abdominal pain. elevated lipase
01/30/25 04:22
0.9% Sodium Chloride 1000 ml [Nss] 1,000 ml IV BOLUS
01/30/25 05:29
HYDROmorphone [Dilaudid] 1 mg IV NOW STA
01/30/25 05:45
US Abdomen Complete/Upper Stat
Comment:
Reason For Exam: eval for acute cholecystitis
01/30/25 05:54
Admit/Transfer Patient As Directed
Co-Sign Provider:
Level of Care: Inpatient admission
Assign to:: Medical/Surgical
Physician / Group: Mauro
Diagnosis: pancreatitis
Reason for Hospitalization: pancreatitis w/ possible cholecystitis
Expected length of stay greater than two midnights?: Yes
ELOS- Estimated Length of Stay in days: 2
I certify the patient meets the requirements for IP care: Yes
01/30/25 05:57
Code Status As Directed
Resuscitation Status: Full Code
Abnormal Lab Results
01/30/25
03:34
RBC 3.83 L 10^6/uL
(4.20-5.40)
Hgb 10.4 L g/dL
(12.0-16.0)
Hct 32.0 L %
(37.0-47.0)
MCHC 32.5 L g/dL
(33.0-37.0)
RDW 15.5 H %
(11.5-14.5)
Abs Immat Gran (auto) 0.1 H 10^3/uL
(0-0.05)
Absolute Neuts (auto) 7.4 H 10^3/uL
(1.4-6.5)
Absolute Monos (auto) 0.9 H 10^3/uL
(0.1-0.6)
Immature Gran % 0.8 H %
(0-0.5)
Lymphocytes % 13.7 L %
(20.5-51.1)
Glucose 198 H mg/dl
(70-99)
Lipase 663 H U/L
(23-300)
01/30/25 03:34
01/30/25 03:34
Vital Signs
Initial and Last Documented VS:
Initial Vital Signs
Temp Pulse Resp BP Pulse Ox
98.5 F 85 24 198/102 100
01/30/25 03:09 01/30/25 03:09 01/30/25 03:09 01/30/25 03:09 01/30/25 03:09
Last Documented Vital Signs
Temp Pulse Resp BP Pulse Ox
98.5 F 79 15 166/78 100
01/30/25 03:09 01/30/25 03:31 01/30/25 03:31 01/30/25 03:31 01/30/25 03:43
<Gordy Turcios MD, Resident - Last Filed: 01/30/25 05:33>
MDM/Problems Addressed
Differential Diagnosis Includes:
Gastroenteritis versus biliary colic versus pancreatitis versus less likely renal colic
MDM/Problems Addressed:
Blood pressure elevated to 166/78. Afebrile. Hypertension could be due to sudden onset of pain.
CBC with normal white blood count. Hemoglobin 10.4 around her baseline
EKG with normal sinus rhythm.
CMP, lipase, beta-hCG pending
1 dose of IV Dilaudid 0.5
IV Zofran 4 mg
update:
CMP with blood glucose of 198 otherwise unremarkable. Beta-hCG negative
Lipase elevated to 663
Ordered 1L LR bolus
CT with gallbladder distended with gallstones large in gallbladder neck suspicious for cholecystitis.
No bowel obstruction or diverticulitis. No obstructing renal stone. Lung bases clear. Abdominal aorta is normal caliber. No pancreatitis on CT. Appendix is normal. Severe L4-S1 canal stenosis.
Patient reports ongoing pain
Will give 1 mg of IV Dilaudid
Plan to admit with consults for surgery. Patient notified and agreeable
Chronic conditions affecting care: DM and Arrhythmia
<Gordy Turcios MD, Resident - Last Filed: 01/30/25 05:33>
*Pulse Oximetry
SaO2: 100
Oxygen Mode of Delivery: Room air
Patient hypoxic: no
*Critical Care Note
Total Time (30-74mins, 75-104mins- exclusive of procedures): Not Applicable
ED Attending Note
<Gordy Turcios MD, Resident - Last Filed: 01/30/25 05:33>
-
Portions of this chart may have been created with voice recognition software.� Occasional wrong word or��sound alike� substitutions may have occurred due to the inherent limitations of voice recognition software.
<Karie Blackburn DO - Last Filed: 01/30/25 06:38>
ED Attending Note
Patient seen and examined by attending physician: Yes
I performed a history and physical exam of patient and discussed management with resident, I reviewed resident's note and agree with documented findings and plan of care.: Yes
ED Attending Note:
This is a 49-year-old morbidly obese woman with history of asthma, GERD, diabetes, cellulitis, remote history of idiopathic pancreatitis over 10 years ago. She was hospitalized here in October of this year with recurrent cellulitis lower leg and
during hospitalization was noted to have 2 brief episodes of atrial fibrillation. Was placed on Eliquis at that time as well as nadolol. Eliquis has since been discontinued.
She presents with abrupt onset of severe upper abdominal pain that woke her from sleep around midnight, constant in nature unrelieved with antacid. She has been intermittently nauseous and vomited shortly after taking an antacid. Upper abdominal
pain radiates to her back. She denies chest pain, no cough or shortness of breath. Upper abdominal pain feels quite different from previous episode of pancreatitis.
49-year-old obese woman appears her stated age, awake and alert, appears in moderate distress related to pain. Cooperative.
Oral mucosa is moist.
Heart is regular rate and rhythm.
Lungs are clear to auscultation.
Abdomen is rotund, soft, moderate tenderness epigastric region as well as mild tenderness right upper quadrant. No rebound or guarding.
Concern for acute cholecystitis, acute pancreatitis, acute gastritis, acute gastroenteritis, bowel obstruction. ACS is unlikely.
EKG is unremarkable showing normal sinus rhythm, normal axis, normal intervals, no acute ST-T wave abnormalities.
Labs are pending.
Will plan for CT abdomen pelvis. Will medicate for pain and nausea initiate IV fluids.
Discharge Plan
Departure
Patient Disposition: Admit
Date of Disposition: 01/30/25
Time of Disposition: 05:32
Presentation/result/management discussed w/ accepting MD/DO: Hospitalist
Patient with high blood pressure during this ER visit?: Yes
Condition: Fair
Discharge Problem:
Pancreatitis, Acute cholecystitis
Prescriptions:
No Action
flecainide 50 mg Tablet
50 mg PO [id number] PRN (Reason: blood pressure)
metformin 500 mg Tablet Extended Release 24 Hr
500 mg PO DAILY
acetaminophen [Tylenol Extra Strength] 500 mg Tablet
1,000 mg PO Q4HPRN PRN (Reason: mild pain)
ibuprofen 400 mg Tablet
400 mg PO Q4HPRN PRN (Reason: mild pain)
ferrous sulfate 325 mg (65 mg iron) tablet
325 mg PO DAILY
cyanocobalamin (vitamin B-12) 1,000 mcg capsule
1,000 mcg PO DAILY
Eliquis 5 mg tablet
5 mg PO BID 30 Days Qty: 60 0RF
nadolol 20 mg Tablet
20 mg PO BID 30 Days Qty: 60 0RF
Referrals:
Rosina De La Cruz CRNP [Family Provider]
Interventions
Interventions:
*Risk Screen - Suicide Last Done: 01/30/25 03:09
*General Assessment Last Done: 01/30/25 03:09
*Neglect/Abuse Screening Last Done: 01/30/25 03:09
*ED- Fall Risk Assessment Last Done: 01/30/25 03:18
*ED COVID-19 Vaccine History Last Done: 01/30/25 03:18
XQ-Megmya-Yenwippyxu Assessment Last Done: 01/30/25 03:18
Discharge Date and Time
Print Language: ROMANIAN
[2025-01-30 03:44] LABS: Hematocrit 32.0 % (37.0-47.0); Hemoglobin 10.4 g/dL (12.0-16.0); Mean Corp Hgb Conc. 32.5 g/dL (33.0-37.0); Mean Corpuscular Volume 83.6 fL (81.0-99.0); Nucleated Red Blood Cells % 0 %; Platelet Count 336 10^3/uL (130-400); Red Cell Dist. Width 15.5 % (11.5-14.5)
[2025-01-30 03:56] LABS: HCG, Serum Qualitative Screen Negative
[2025-01-30 03:58] LABS: ALT (SGPT) 17 U/L (0-35); AST (SGOT) 17 U/L (14-36); Albumin 4.1 g/dl (3.5-5.0); Alkaline Phosphatase 72 U/L (38-126); Blood Urea Nitrogen 9 mg/dl (7-17); Calcium 9.1 mg/dl (8.4-10.2); Carbon Dioxide 24 mmol/L (22-30); Chloride 105 mmol/L (98-107); Estimated Creatinine Clearance > 125 ml/min; Glucose 198 mg/dl (70-99); Lipase 663 U/L (23-300); Potassium 3.9 mmol/L (3.5-5.1); Sodium 136 mmol/L (135-145); Total Protein 7.6 g/dl (6.3-8.2); eGFR > 60.00
[2025-01-30] MEDS: DILAUDID 0.5 MG IV ×3 (04:25→16:11)
[2025-01-30] MEDS: ZOFRAN 4 MG IV ×5 (04:25→23:07)
[2025-01-30] MEDS: NSS 1000 IV (04:53)
--- NOTE | 2025-01-30 05:47 | HPS.HSE ---
Family Physician
-
Family Physician: ANDERS Guillen
Chief Complaint
-
Abdominal pain
History of Present Illness
This is a 49-year-old with past medical history of paroxysmal atrial fibrillation on anticoagulation, ksq-tzehdyf-iymnzzqmr diabetes asthma, GERD, history of pancreatitis, anxiety who presents to the emergency department with abdominal pain.
Reports sudden onset of abdominal pain that is now 10 starting around midnight localized to the right upper quadrant with 1 episode of nonbloody and nonbilious emesis after taking an antacid. She has no diarrhea. She denies any fevers or chills.
She denies any constipation. She denies any flank pain, dysuria or hematuria frequency. She does report that she takes Ozempic for weight loss for the last 1 month but not continuing. No other medication changes. She denies any alcohol use.
In the emergency department she was afebrile, blood pressure was 166/70 with a pulse of 79 satting 100% on room air.
CBC is unremarkable except for hemoglobin of 10.4 which is unchanged from prior. Electrolytes are normal. BUN/creatinine were normal. LFTs were normal. Lipase was elevated at 63. ECG shows a normal sinus rhythm at rate of 78.
CT of the abdomen pelvis showing distended gallbladder with gallstone lodged in the gallbladder neck suspicious for cholecystitis.
Medical History
Past Medical History
Past Medical History: Reports Other (Obesity, atrial fibrillation, prediabetic)
Past Surgical History: Reports Other (No recent major surgery)
Social History
Tobacco: Non-smoker
Alcohol: None
Drug: None
Personal:
Living: With Family
Employment: Employed
Family History
Family History: Adopted
Allergies / Home Medications
Allergies reflects when Allergies were last updated in [employer].
Home Medications with original date entered in [employer]
Allergy/Medication List:
Allergies
Allergy/AdvReac Type Severity Reaction Status Date / Time
vancomycin AdvReac Intermediate Itching Verified 10/29/24 08:47
Home Medications
flecainide 50 mg tablet 50 mg PO [id number] PRN blood pressure 08/31/24
metformin 500 mg tablet,extended release 24 hr 500 mg PO DAILY Diabetes 08/31/24
nadolol 20 mg tablet 20 mg PO BID Arrhythmia 08/31/24
acetaminophen 500 mg tablet (Tylenol Extra Strength) 1,000 mg PO Q4HPRN PRN mild pain 10/26/24
ibuprofen 400 mg tablet 400 mg PO Q4HPRN PRN mild pain 10/26/24
cephalexin 500 mg capsule 1,000 mg PO QID Infection 10/29/24
cyanocobalamin (vitamin B-12) 1,000 mcg capsule 1,000 mcg PO DAILY Supplement 10/29/24
ferrous sulfate 325 mg (65 mg iron) tablet 325 mg PO DAILY Supplement 10/29/24
Review of Systems
-
Constitutional: Reports No Symptoms
EENT: Reports No Symptoms
Respiratory: Reports No Symptoms
Cardiac: Reports No Symptoms
Abdomen/GI: Reports Abdominal Pain and Vomiting
: Reports No Symptoms
Musculoskeletal: Reports No Symptoms
Skin: Reports No Symptoms
Neurological: Reports No Symptoms
Endocrine: Reports No Symptoms
Hematologic/Lymphatic: Reports No Symptoms
Psych: Reports No Symptoms
Physical Exam
Vital Signs
Vital Signs
Temp Pulse Resp BP Pulse Ox
98.5 F 79 15 166/78 100
01/30/25 03:09 01/30/25 03:31 01/30/25 03:31 01/30/25 03:31 01/30/25 03:43
Physical Exam
General: Well Developed, Well Nourished and No Apparent Distress
HEENT: NormoCephalic, Moist mucous membranes and Atraumatic
Respiratory: Clear
Cardiac: S1/S2 and Regular Rhythm; No Murmur or Rub
GI: Soft, Non Tender, Non Distended and Normal Bowel Sounds; No Organomegaly
Rectal: Deferred by Provider
Musculoskeletal: No Clubbing, No Cyanosis and No Edema
Skin: No Rash
Neuro: Nonfocal/grossly intact
Laboratory Results
-
01/30/25 03:34
01/30/25 03:34
Laboratory Results
Total Bilirubin 0.7 mg/dl (0.2-1.3) 01/30/25 03:34
AST 17 U/L (14-36) 01/30/25 03:34
ALT 17 U/L (0-35) 01/30/25 03:34
Alkaline Phosphatase 72 U/L (38-126) 01/30/25 03:34
Lipase 663 U/L (23-300) H 01/30/25 03:34
Data Reviewed
-
CT Scan: Report Reviewed by me
Medical Tests (Nuc Med, Echo, EKG etc): Image Personally Visualized and interpreted
Lab Data: Labs Reviewed by me
Old Records: Reviewed
Impression/Plan
-
IMPRESSION:
69-year-old with obesity, paroxysmal atrial fibrillation on anticoagulation, anxiety and depression, GERD and bipolar disorder presented to the Emergency Department with abdominal pain found to have elevated lipase to 63 distended gallbladder with
gallstone lodged in the gallbladder neck concerning for cholecystitis. LFTs were normal. CT scan does not show any significant pancreatic abnormality.
PLAN:
Patient with gallstone pancreatitis and possibly cholecystitis, with stone lodged in GB neck and distension, likely will need surgical tx
- admit to med/surg
- RUQ u/s ordered and pending
- given concern for cholecystitis starting unasyn
- mrcp, d/c if not needed by surgery, trend lfts
- NPO, IV fluids, pain control and antiemetics
- Surgery consultation
- GI consultation
Paroxysmal atrial fibrillation - current nsr, self d/c eliquis due to costs
- CHADS2 score =1, discuss alternative a/c or aspirin after surgical disposition
- continue nadolol 20 po bid
Prediabetes
- sliding scale insulin for now
DVT PPX - heparin s/q
Code status - Full Code
[2025-01-30] MEDS: DILAUDID 1 MG IV ×2 (06:08→08:17)
--- NOTE | 2025-01-30 07:19 | W.PN.UPDATE ---
Update Note
Progress Note Update
Patient seen and examined, agree with hospitalist H&P.
Right upper quadrant abdominal ultrasound reviewed, CBD normal.
Discussed with general surgery.
Although ultrasound is negative for cholecystitis, general surgery suspects patient still has acute cholecystitis.
General surgery plans for laparoscopic cholecystectomy today.
Continue n.p.o., IV fluids, IV Unasyn, pain control.
Since CBD is normal, no need for MRCP, will cancel GI consult.
[2025-01-30] MEDS: ZOSYN 100 IV (08:18)
--- NOTE | 2025-01-30 08:36 | EDRN ---
medication reconciliation performed by this RN with the pt, the pt is aware of the medications that she takes, the pt states that she is no longer on ozempic due to the cost of it
--- NOTE | 2025-01-30 09:21 | EDRN ---
this RN called pharmacy and notified them that this RN processed admission orders
--- NOTE | 2025-01-30 11:13 | CON.GS ---
Addendum entered and electronically signed by Mohan Lezama MD 01/30/25 11:27:
I saw and examined the patient.
The Passenger Service Agent's note was reviewed and I agree with the note.
Comment: Remains very uncomfortable this am. Little relief from pain meds. Mod ttp to RLQ on exam. US with stone in the neck, c/w CT showing hyperdensity in the same location, likely a gallstone. Suspect ACC. Plan for rCCY today. Informed consent
obtained.
Original Note:
Consultation
-
Date/Time Consultation Performed: 01/30/25 0750
Medical History
-
Chief Complaint: Upper abdominal pain
History of Present Illness:
Ms Mckeon is a 49 yo female with a h/o Afib (self d/c'd Eliquis d/t cost) and Obesity recently on Ozempic (also d/c'd use d't cost one month ago) who presents with epigastric pain like a band across her upper abdomen and into her right mid back
which began a few hours after dinner of eggs with cheese last night. She had one episode of vomiting shortly after onset of symptoms. Pain persisted causing her to present through the ED for evaluation. On exam, she is quite tender to the
epigastrium into the RUQ. She denies fevers but did have chills. She denies bowel or bladder changes. She denies prior episodes of pain like this in the past.
Past Medical History
Past Medical History: Arrhythmias (afib) and Other (morbid obesity)
Past Surgical History: None
Social History
Tobacco: Non-Smoker
Alcohol: None
Family History
Family History: Reviewed & Not Pertinent
Allergies / Home Medications
Allergy/AdvReac Type Severity Reaction Status Date / Time
vancomycin AdvReac Intermediate Itching Verified 10/29/24 08:47
�Medication �Instructions �Recorded �Confirmed �Type
flecainide 50 mg tablet 50 mg PO [id number] PRN blood pressure 08/31/24 01/30/25 History
acetaminophen 500 mg tablet 1,000 mg PO Q4HPRN PRN mild pain 10/26/24 01/30/25 History
(Tylenol Extra Strength)
ibuprofen 400 mg tablet 400 mg PO Q4HPRN PRN mild pain 10/26/24 01/30/25 History
nadolol 20 mg tablet 20 mg PO BID Arrhythmia 30 days 11/01/24 01/30/25 Rx
#60 tabs
Review of Systems
-
History Source: Patient
All other systems: Negative unless noted
A 10 point review of systems was completed, and was negative except as per HPI.
Physical Exam
Vital Signs
Temp Pulse Resp BP Pulse Ox
98.5 F 69 16 165/75 100
01/30/25 07:54 01/30/25 10:28 01/30/25 10:28 01/30/25 10:28 01/30/25 10:28
01/29/25 01/30/25 01/31/25
06:59 06:59 06:59
Actual Weight 141 kg 141.2 kg
Body Mass Index (BMI) 55.1
Lab Results
01/30/25 03:34
01/30/25 03:34
WBC 10.0 10^3/uL (4.8-10.8) 01/30/25 03:34
Hgb 10.4 g/dL (12.0-16.0) L 01/30/25 03:34
Hct 32.0 % (37.0-47.0) L 01/30/25 03:34
Plt Count 336 10^3/uL (130-400) 01/30/25 03:34
Abs Immat Gran (auto) 0.1 10^3/uL (0-0.05) H 01/30/25 03:34
Neutrophils % 73.9 % (42.2-75.2) 01/30/25 03:34
Physical Exam
General: Pain; Negative Comfortable
HEENT: Normocephalic and Moist Mucous Membranes
Respiratory: Non Labored Respirations
GI: Soft, Tender (Epigastrium across to the RUQ) and Obese
Skin: Warm and Dry
Neuro: Awake, Alert and AO x 3
Psych: Calm
Assessment / Plan
-
49 yo female with a h/o AFib (not on AC) with recent Ozempic use (d/c'd one month ago) who presents through the ED with RUQ/Epigastric pain which began after a fatty meal and has persisted since. Vomiting x1. US imaging was quite limited but does
demonstrate a stone within the gallbladder neck as does the CT. No leukocytosis. LFT's wnl, mildly elevated lipase. Given her tenderness and history, suspect acute cholecystitis.
Plan:
Keep NPO for OR today for robotic cholecystectomy
Start IV abx
Analgesics/Antiemetics prn
Given normal LFT's, will cancel MRCP
Medical management as per primary team
[2025-01-30] MEDS: CORGARD PO (11:31)
--- NOTE | 2025-01-30 11:31 | EDRN ---
the pt pressed the call monterroso and this RN entered the pts room, the pt asked for IV pain medication and this RN notified the pt that per the providers orders that it was not yet time to receive IV pain medication, this RN offered PO oxycodone and the
pt refused, the pt also stated that she did not want any medication by mouth, 'This is my first time having surgery and i don't want anything to go wrong so i don't want anything by mouth', this RN educated the pt and notified the pt that per the
providers orders, the patient was able to take sips of water with oral medications and the pt still refused, Dr. Lezama notified
[2025-01-30] MEDS: LR 1000 IV ×2 (11:54→23:04)
[2025-01-30] MEDS: UNASYN IV ×2 (12:23→18:40)
--- NOTE | 2025-01-30 14:34 | CM ---
Met with patient in the ED
Pharmacy verified: [facility]
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
No SNF or Home Health utilization history
DME: [employer]
Plan: anticipate discharge to home when medically stable
Case Management will monitor for needs/services after her operative procedure
[2025-01-30] MEDS: LR IV (16:13)
--- NOTE | 2025-01-30 17:45 | EDRN ---
the OR called this RN and this RN gave verbal report
--- NOTE | 2025-01-30 19:59 | W.IMMPOSTOP ---
Surgical Immed Post Op Note
-
Primary Surgeon: Teja
Pre-op Diagnosis: Acute calculous cholecystitis
Post-op Diagnosis: Same
Procedure Performed: Robotic cholecystitis
Anesthesia Type: GETA
Specimen / Cultures: Gallbladder
Estimated Blood Loss: 2cc
Complications: None immediate
Operative Findings: Severely inflamed gallbladder, tensely distended and decompressed with a cyst aspiration needle, thickened wall, wall edema noted.
updated by phone
[2025-01-30 20:11] LABS: Glucose - Point of Care 138 mg/dl (70-99)
[2025-01-30] MEDS: TORADOL 30 MG IV (23:05)
[2025-01-30] MEDS: CORGARD 20 MG PO (23:06)
[2025-01-30] MEDS: LOVENOX 40 MG SC (23:07)
[2025-01-30 23:28] LABS: Glucose - Point of Care 180 mg/dl (70-99)
[2025-01-31 00:20] VITALS: BP 158/79
[2025-01-31] MEDS: UNASYN IV ×3 (00:34→11:07)
[2025-01-31 03:02] VITALS: BP 151/81
--- NOTE | 2025-01-31 04:22 | TRANSFER ---
Pt transferred to 3w from pacu in hospital bed. This RN took report from Breanna Wang. Pt AAO x3 vitals Bp 159/85 P 74 T 98.2 O2 97% on r/a R 18. Pt oriented to room, call monterroso within reach, plan of care ongoing.
[2025-01-31] MEDS: LR 1000 IV ×2 (05:13→08:14)
[2025-01-31 05:42] LABS: Hematocrit 31.0 % (37.0-47.0); Hemoglobin 10.4 g/dL (12.0-16.0); Mean Corp Hgb Conc. 33.5 g/dL (33.0-37.0); Mean Corpuscular Volume 81.4 fL (81.0-99.0); Platelet Count 335 10^3/uL (130-400); Red Cell Dist. Width 15.4 % (11.5-14.5)
[2025-01-31 06:37] LABS: ALT (SGPT) 42 U/L (0-35); AST (SGOT) 54 U/L (14-36); Albumin 3.9 g/dl (3.5-5.0); Alkaline Phosphatase 79 U/L (38-126); Blood Urea Nitrogen 7 mg/dl (7-17); Calcium 9.2 mg/dl (8.4-10.2); Carbon Dioxide 22 mmol/L (22-30); Chloride 105 mmol/L (98-107); Estimated Creatinine Clearance > 125 ml/min; Glucose 177 mg/dl (70-99); Magnesium 2.1 mg/dl (1.6-2.3); Potassium 4.0 mmol/L (3.5-5.1); Sodium 135 mmol/L (135-145); Total Protein 7.5 g/dl (6.3-8.2); eGFR > 60.00
[2025-01-31 07:21] LABS: Glucose - Point of Care 152 mg/dl (70-99)
[2025-01-31 07:34] VITALS: BP 141/74
[2025-01-31 08:06] VITALS: BMI 54.6
[2025-01-31] MEDS: CORGARD 20 MG PO (08:12)
[2025-01-31] MEDS: LOVENOX 40 MG SC (08:12)
[2025-01-31] MEDS: NOVOLOG FLEXPEN-LOW RESISTANCE 1 UNITS SC ×2 (08:13→11:22)
[2025-01-31 08:20] LABS: Glycohemoglobin (HgbA1c) 5.6 % (4.0-5.6)
--- NOTE | 2025-01-31 08:41 | OR.RPT ---
Operative Report
Operative Report
Primary Surgeon: Teja
Pre-op Diagnosis: Acute calculous cholecystitis
Post-op Diagnosis: Same
Procedure Performed: Robotic cholecystectomy
Anesthesia Type: GETA
Specimen / Cultures: Gallbladder
Estimated Blood Loss: 2cc
Complications: None immediate
Operative Findings: Severely inflamed gallbladder, tensely distended and decompressed with a cyst aspiration needle, thickened wall, wall edema noted.
Date of Surgery: 01/30/25
Indications: This 49F developed right upper quadrant/epigastric pain and on workup was found to have cholelithiasis with no elevation of liver function studies and a normal size common duct. Laparoscopic cholecystectomy with robotic assist was
elected.
Description of procedure: The patient was placed on the operating table in the supine position. General anesthesia was induced. A time-out was completed verifying correct patient, procedure,
site, positioning, and special equipment prior to beginning this procedure. An orogastric tube was placed. The abdomen was prepped and draped in the usual sterile fashion. A stab incision was made in left upper quadrant and the Veress needle was
inserted. Proper position was confirmed by aspiration and saline meniscus test. The abdomen was insufflated with carbon dioxide to a pressure of 12 mmHg. The patient tolerated insufflation well.
An 8mm optical trocar was then inserted in the left upper quadrant. The laparoscope was inserted and the abdomen inspected. No injuries from initial trocar placement or Veress needle insertion were noted. Additional 8mm trocars were then inserted in
the following locations: above the umbilicus, right mid axillary line at the level of the umbilicus and 6cm lateral to this on the right. The abdomen was inspected and no abnormalities were found. The table was placed in the reverse Trendelenburg
position with the right side up. The gallbladder was decompressed with a cyst aspiration needle. The dome of the gallbladder was grasped with an atraumatic grasper and retracted over the dome of the liver. The infundibulum was also grasped with an
atraumatic grasper and retracted toward the right lower quadrant. This maneuver exposed Calot�s triangle. The peritoneum overlying the gallbladder infundibulum was then incised and the cystic duct and cystic artery identified and circumferentially
dissected so that a clear view of the liver was achieved through a window between the cystic duct an cystic artery. At this time, the only two structures going into the gallbladder were the cystic artery and cystic duct.
The cystic duct was then doubly clipped and divided and the and cystic artery was controlled with bipolar and divided. Both structures were taken close to the gallbladder. The gallbladder was then dissected from its peritoneal attachments by
electrocautery. Hemostasis was assured and the gallbladder and contained stones were removed using an endoscopic retrieval bag placed through the umbilical port. The gallbladder was passed off the table as a specimen. The gallbladder fossa was
copiously irrigated with saline and hemostasis was again assured. There was no evidence of bleeding from the gallbladder fossa or cystic artery or leakage of the bile from the cystic duct stump. The umbilical trocar site was closed at the fascial
level laparoscopically with 2-0 PDS. Secondary trocars were removed under direct vision and noted to be hemostatic. The laparoscope was withdrawn and the umbilical trocar removed. The abdomen was allowed to collapse. The skin was closed with
subcuticular sutures of 4-0 monocryl and topical skin adhesive. The orogastric tube was removed.
The patient tolerated the procedure well and was taken to the postanesthesia care unit in stable condition.
--- NOTE | 2025-01-31 10:08 | W.PN.HOSP.TC ---
Today's Communication/Plan
-
monitor liver enzymes
possible DC later today
Assessment / Plan
Assessment / Plan
This is a 49-year-old with past medical history of paroxysmal atrial fibrillation on anticoagulation, [id number] diabetes asthma, GERD, history of pancreatitis, anxiety who presents to the emergency department with abdominal pain admitted
for acute cholecystitis.
Abdomen/Pelvis CT
IMPRESSION:
Prominent gallbladder with stones, including at the vicinity of the gallbladder neck. No biliary tract dilatation. Please see separate concurrent Abdominal ultrasound report.
No pancreatic/peripancreatic inflammatory changes.
Unremarkable appendix. No intestinal obstruction or free air.
Symmetric renal excretion.
RUQ US
IMPRESSION: Evaluation overall limited, as noted above including mid to distal abdominal aorta significantly obscured, most likely by overlying bowel gas.
Gallstones seen including in the vicinity of the neck of the gallbladder. No findings to suggest gallbladder wall thickening or pericholecystic fluid. Negative sonographic John's sign. No biliary tract dilatation.
01/30/25
Operative Findings: Severely inflamed gallbladder, tensely distended and decompressed with a cyst aspiration needle, thickened wall, wall edema noted.
Acute Cholecystitis
-s/p OR 01/30 - s/p cholecystectomy
-continue IV Unasyn
-diet advanced
-pain control
Paroxysmal atrial fibrillation - current nsr, self d/c eliquis due to costs
- CHADS2 score =2 (woman, DM),
- patient has reviewed options with outpatient providers and will continue to discuss
- continue nadolol 20 po bid
Prediabetes
- sliding scale insulin for now
DVT PPX - heparin s/q
Code status - Full Code
Anticipated Discharge: Within 24 hours
Subjective/Interval History
-
Date of Service: January 31, 2025
pain much better than when she came in
some mild discomfort
Objective Data
-
Labs:
Laboratory Results
07/21/25 07/21/25
05:28 14:00
WBC 14.0 H
Hgb 10.4 L
Hct 31.0 L
Plt Count 335
Sodium 135
Potassium 4.0
Chloride 105
Carbon Dioxide 22
BUN 7
Creatinine 0.5 L
Glucose 177 H
Calcium 9.2
Total Bilirubin 1.4 H Pending
AST 54 H Pending
ALT 42 H Pending
Alkaline Phosphatase 79 Pending
Vital Signs:
Vital Signs
Temp Pulse Resp BP Pulse Ox
98.0 F 69 17 141/74 99
01/31/25 07:34 01/31/25 07:34 01/31/25 07:34 01/31/25 07:34 01/31/25 07:34
I&O
01/30/25 01/31/25 02/01/25
06:59 06:59 06:59
Intake Total 150 / 150
Balance 150 / 150
Review of Systems
-
History Source: Patient
All other systems: Reviewed and negative
Physical Exam
-
General: Morbidly Obese
HEENT: Normocephalic and Atraumatic
Respiratory: Negative Wheezes
Cardiac: Regular Rhythm and S1/S2
GI: Soft and Nontender
Neuro: AO x 3
Hematologic / Lymphatic: No Lymphadenopathy
Psych: Calm
Data Reviewed
-
Diagnostic Radiology: Report Reviewed by me
Labs: Labs Reviewed by me
--- NOTE | 2025-01-31 10:46 | W.PN.GS2 ---
Addendum entered and electronically signed by Clayton Lane MD 01/31/25 15:27:
I saw and examined the patient independently.
The resident's documentation was reviewed and I agree with the note, assessment and plan except where noted below.
Comment: This is a 49-year-old female with morbid obesity status post robotic cholecystectomy on 01/30/2025.
Blood work this morning demonstrated elevated bilirubin from normal, will recheck this afternoon. If downtrending can go home.
Will plan for 4-day course of antibiotics.
Dispo per primary.
Patient to follow-up with Dr. Lezama in 2 weeks
Original Note:
Today's Communication / Plan
-
Repeat labs in the afternoon to check downward trend before discharge.
Medicine team to decide discharge
Patient is advised to take 4-day course of antibiotics at home
Patient will be given home pain meds as needed
Patient advised to follow-up with Dr. Lezama OP in 2 days.
Assessment / Plan
-
POD #1 s/p robotic cholecystectomy for acute calculus cholecystitis.
Patient is clinically stable and doing well
Surgery signs off to medicine team for discharge
Follow-up with Dr. Lezama in 2 days
Patient is advised on how to manage her incisions healing at home.
Patient will be sent home with pain medication as needed
Patient advised to take 4-day course of antibiotics.
Get repeat blood work around 2 PM to make sure labs trending down before discharge.
Time Spent
Total Time Spent with Patient (in minutes): 40
Subjective Data
-
Date of Service: January 31, 2025
49-year-old female with PMH of A-fib (self DC'd Eliquis due to cost) and obesity recently on Ozempic (also DC'd due to cost 1 month ago) who presented yesterday with epigastric pain like a band across her upper abdomen into her right mid back, which
began a few hours after her dinner the night before. Patient's states she had a episode of vomiting and tenderness in RUQ. Patient is POD #1 s/p robotic cholecystectomy for acute calculous cholecystitis. Today patient denies N/V/D/F/BM. Patient
states she has had normal return of flatus, she is able to OOB and ambulate, and tolerate her full diet. Patient states her pain at rest is a 2 out of 10 but in motion or when coughing is a 4 out of 10. Patient states she is not currently on any
pain medications.
Objective Data
-
Intake and Output
01/30/25 01/31/25 02/01/25
06:59 06:59 06:59
Intake Total 150 / 150
Balance 150 / 150
Intake:
IV fluids (Total) 150 / 150
Normosol 150 / 150
Vital Signs
Temp Pulse Resp BP Pulse Ox
98.0 F 69 17 141/74 99
01/31/25 07:34 01/31/25 07:34 01/31/25 07:34 01/31/25 07:34 01/31/25 07:34
Lab Results
01/31/25 05:28
01/31/25 05:28
Calcium 9.2 mg/dl (8.4-10.2) 01/31/25 05:28
Phosphorus 3.4 mg/dl (2.5-4.5) 01/31/25 05:28
Magnesium 2.1 mg/dl (1.6-2.3) 01/31/25 05:28
Total Bilirubin 1.4 mg/dl (0.2-1.3) H 01/31/25 05:28
AST 54 U/L (14-36) H 01/31/25 05:28
ALT 42 U/L (0-35) H 01/31/25 05:28
Alkaline Phosphatase 79 U/L (38-126) 01/31/25 05:28
Total Protein 7.5 g/dl (6.3-8.2) 01/31/25 05:28
Albumin 3.9 g/dl (3.5-5.0) 01/31/25 05:28
AFVSS
Labs: White blood cell count increased from 10-14. Mild elevation in AST ALT. Increased neutrophils decrease in lymphocytes. Total bilirubin increased to 1.4.
Physical Exam
-
General: NAD. AAAOx3
Chest: No labored breathing
Abdomen: Mildly TTP around incision sites. Incision sites look good. Also mild distention.
Patient has a bella catheter: No
Patient has a central line: No
[2025-01-31] MEDS: ULTRAM 100 MG PO (11:07)
[2025-01-31] MEDS: FLUSH (NSS) 1 FLUSH IV (11:08)
[2025-01-31 11:14] LABS: Glucose - Point of Care 163 mg/dl (70-99)
[2025-01-31 11:27] VITALS: BP 138/74
--- NOTE | 2025-01-31 12:16 | CM ---
Anticipated discharge today s/p robotic cholecystectomy. Kajal lives with her , Ananth, in a multilevel home with 4 entry steps. She reports independence with ADL and ambulation. 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
Plan: Discharge to home with no needs. Family will transport.
--- NOTE | 2025-01-31 13:44 | W.DCSUMMARY ---
Discharge Summary
Discharge Data
Date of Admission: 01/30/25
Date of Discharge: 01/31/25
-
Pending Results: No
Hospital Course
Discharging Physician : Dr. Zayra Lovelace
Disposition : Home
Primary care physician : Dr. Rosina De La Cruz
Principal Discharge diagnosis : Acute Cholecystitis
Hospital Course :
Ms. Kajal Adam is a 49 yo woman with hx paroxysmal atrial fibrillation (not on AC 2/2 cost), NIDDM, asthma, GERD who presents to the ER with sudden severe abdominal pain.
In the emergency department she was afebrile, blood pressure was 166/70 with a pulse of 79 satting 100% on room air. CBC is unremarkable except for hemoglobin of 10.4 which is unchanged from prior. Electrolytes are normal. BUN/creatinine were
normal. LFTs were normal. Lipase was elevated at 663. ECG shows a normal sinus rhythm at rate of 78. CT of the abdomen pelvis showing distended gallbladder with gallstone lodged in the gallbladder neck suspicious for cholecystitis.
Patient was admitted to medicine with GS consulting and she underwent robotic cholecystectomy on 01/30; with intra-op findings showing severely inflamed gallbladder. Pain significantly improved the following day, she is tolerating a regular diet.
Liver enzymes mildly up post-op then trended down later in the day. She is cleared for discharge. She is prescribed 4 additional days of antibiotics.
Patient was not taking Eliquis for atrial fibrillation prior to arrival secondary to cost. She understands risks of not taking AC and will have further discussions with her outpatient providers. She does not want to be on Coumadin with need for
frequent lab draws. Patient wishes to hold off on AC now and discuss further as outpatient.
Time spent on discharge was 31 minutes.
Important imaging findings :
Abdomen/Pelvis CT
IMPRESSION:
Prominent gallbladder with stones, including at the vicinity of the gallbladder neck. No biliary tract dilatation. Please see separate concurrent Abdominal ultrasound report.
No pancreatic/peripancreatic inflammatory changes.
Unremarkable appendix. No intestinal obstruction or free air.
Symmetric renal excretion.
RUQ US
IMPRESSION: Evaluation overall limited, as noted above including mid to distal abdominal aorta significantly obscured, most likely by overlying bowel gas.
Gallstones seen including in the vicinity of the neck of the gallbladder. No findings to suggest gallbladder wall thickening or pericholecystic fluid. Negative sonographic John's sign. No biliary tract dilatation.
01/30/25
Operative Findings: Severely inflamed gallbladder, tensely distended and decompressed with a cyst aspiration needle, thickened wall, wall edema noted.
Procedure findings :
Discharge Plan
-
Patient Disposition: Home (Routine Discharge)
Discharge Diagnosis/Procedures: Acute gangrenous cholecystitis status post robotic cholecystectomy
Diet: As tolerated
Additional Diets: If you have loose stools after surgery, eat a low fat diet avoiding greasy, oily foods and high fat dairy prodcuts
Activity: No strenuous activity
Additional Activity: Do not lift over 15lbs for the next 2-3 weeks
Driving Restrictions: No driving for 24 hours
Bathing Restrictions: OK to Shower
Wound Care: Allow the glue to flake off your incisions over the next 2-3 weeks. Avoid soaking or swimming in tubs or pools.
Activity Restrictions/Additional Instructions:
Call your surgeon if you have worsening pain, nausea with vomiting or a fever >100.5
Referrals:
Rosina De La Cruz CRNP [Family Provider]
Mohan Lezama MD [Active, Surgical] - in two to four weeks
Additional Discharge Medication Instructions: Do not take anticoagulation for a minimum of 48 hours after surgery
Prescriptions:
New
amoxicillin-pot clavulanate 875-125 mg tablet
1 tab PO Q12 Qty: 7 0RF
oxycodone 5 mg Tablet
5 mg PO Q6HPRN PRN (Reason: moderate pain) Qty: 5 0RF
Continued
flecainide 50 mg Tablet
50 mg PO [id number] PRN (Reason: blood pressure)
acetaminophen [Tylenol Extra Strength] 500 mg Tablet
1,000 mg PO Q4HPRN PRN (Reason: mild pain)
ibuprofen 400 mg Tablet
400 mg PO Q4HPRN PRN (Reason: mild pain)
nadolol 20 mg Tablet
20 mg PO BID 30 Days Qty: 60 0RF
trazodone 50 mg Tablet
50 mg PO HSPRN PRN (Reason: SLEEP)
escitalopram oxalate [Lexapro] 10 mg Tablet
10 mg PO DAILY
Discharge Orders:
Discharge Patient (As Directed); Ordered 01/31/25
Ordered By: Zayra Lovelace
Discharge Date and Time
Print Language: [place]
[2025-01-31 14:40] LABS: ALT (SGPT) 46 U/L (0-35); AST (SGOT) 50 U/L (14-36); Albumin 3.8 g/dl (3.5-5.0); Alkaline Phosphatase 70 U/L (38-126); Total Protein 7.2 g/dl (6.3-8.2)
[2025-01-31 15:18] VITALS: BP 126/67
[2025-01-31] MEDS: ROXICODONE 5 MG PO (15:21)
[2025-01-31] MEDS: NOVOLOG FLEXPEN-LOW RESISTANCE SC (16:36)
== END 2025-01-31 18:01 | disposition home or self-care (01) | DRG 409 ==
LOC: 3 WEST ACU 06:33
PROVIDERS: Family Medicine; Registered Nurse; ADMITTING PHYSICIAN Internal Medicine; ATTENDING PHYSICIAN Student in an Organized Health Care Education/Training Program; CONSULT PHYSICIAN Surgery; EMERGENCY PHYSICIAN Emergency Medicine; FAMILY PHYSICIAN Nurse Practitioner Primary Care
PROC: 0F944ZZ Drainage of Gallbladder, Percutaneous Endoscopic Approach (ICD-10-PCS; 2025-01-31)
PROC: 0FT44ZZ Resection of Gallbladder, Percutaneous Endoscopic Approach (ICD-10-PCS; 2025-01-31)
PROC: 8E0W4CZ Robotic Assisted Procedure of Trunk Region, Percutaneous Endoscopic Approach (ICD-10-PCS; 2025-01-31)
DX: K80.00 Calculus of gallbladder with acute cholecystitis without obstruction (principal); Z68.43 Body mass index [BMI] 50.0-59.9, adult; E11.9 Type 2 diabetes mellitus without complications; J45.909 Unspecified asthma, uncomplicated; I48.0 Paroxysmal atrial fibrillation; D64.9 Anemia, unspecified; K21.9 Gastro-esophageal reflux disease without esophagitis; K82.A1 Gangrene of gallbladder in cholecystitis; K82.8 Other specified diseases of gallbladder; F31.9 Bipolar disorder, unspecified; F41.9 Anxiety disorder, unspecified; G43.909 Migraine, unspecified, not intractable, without status migrainosus; E66.01 Morbid (severe) obesity due to excess calories; Z79.84 Long term (current) use of oral hypoglycemic drugs; Z79.01 Long term (current) use of anticoagulants; Z88.1 Allergy status to other antibiotic agents
CPT/HCPCS: 74177; 76700; 80053; 80076; 82962; 83036; 83690; 83735; 84100; 84703; 85025; 85027; 88304; 93005; 96361; 96374; 96375; 99285; Q9967